=== PATIENT | female | born 1965 | race American Indian/Alaskan Native ===

== ENCOUNTER 2018-03-16 04:47 | Observation (INO) | payer MEDICAID ==
--- NOTE | 2018-03-16 06:41 | C.PDOC ---
Time Seen by Provider: 03/16/18 05:01 Chief Complaint (Nursing): Chest Pain History Per: Patient Onset/Duration Of Symptoms: Hrs (this morning) Current Symptoms Are (Timing): Still Present Severity: Moderate Quality: "Pain" Modifying Factors: Other Indicated Below Alleviating Factors: None Nitro Therapy Administered: 1, Per EMS, Partial Relief Additional History Per: Prior Records Past Medical History Reviewed: Historical Data, Nursing Documentation, Vital Signs Vital Signs: Last Vital Signs Temp 99.1 F 03/16/18 05:13 Pulse 74 03/16/18 06:39 Resp 16 03/16/18 06:39 BP 137/65 03/16/18 06:39 Pulse Ox 100 03/16/18 06:54 - Medical History PMH: Arthritis, Diabetes, HIV, HTN, Hypercholesterolemia Surgical History: Hernia Repair Family History: States: Unknown Family Hx - Social History Hx Tobacco Use: Yes Hx Alcohol Use: Yes Hx Substance Use: No - Immunization History Hx Tetanus Toxoid Vaccination: No Hx Influenza Vaccination: Yes Hx Pneumococcal Vaccination: No Review Of Systems Except As Marked, All Systems Reviewed And Found Negative. Constitutional: Negative for: Fever, Weakness Cardiovascular: Positive for: Chest Pain, Edema Respiratory: Positive for: Shortness of Breath. Negative for: Hemoptysis Gastrointestinal: Positive for: Vomiting (yesterday). Negative for: Abdominal Pain Musculoskeletal: Positive for: Back Pain. Negative for: Neck Pain Skin: Negative for: Rash Neurological: Negative for: Weakness, Numbness Physical Exam - Physical Exam Appears: No Acute Distress, Chronically Ill Skin: Normal Color, Warm, Dry Head: Atraumatic, Normacephalic Eye(s): bilateral: PERRL, EOMI Neck: Normal ROM, Supple Cardiovascular: Rhythm Regular Respiratory: Normal Breath Sounds, No Accessory Muscle Use Gastrointestinal/Abdominal: Soft, No Tenderness Extremity: Normal ROM, Pedal Edema (b/l), No Calf Tenderness Neurological/Psych: Oriented x3, Normal Motor, Normal Sensation ED Course And Treatment - Laboratory Results Result Diagrams: 03/16/18 06:41 ECG: Interpreted By Me, Viewed By Me ECG Rhythm: Sinus Rhythm, Nonspecific Changes ECG Interpretation: Abnormal Interpretation Of ECG: Prolonged QTc Rate From EC O2 Sat by Pulse Oximetry: 100 Pulse Ox Interpretation: Normal - Radiology CXR: Interpreted by Me, Viewed By Me CXR Interpretation: Yes: Cardiomegaly Progress Note: RNs were not able to obtain a peripheral IV line. Pt is refusing EJ or lower extremity IV attempts. Progress - Interventions Interventions:: Observation, Oxygen - Medications Administered Oral: Aspirin (given by EMS) Disposition - Disposition Disposition Time: 06:55 Condition: FAIR - Clinical Impression Clinical Impression: Chest pain Physician Patient Turnover Patient Signed Over To: Linda Riley Handoff Comments: to f/up labs and reassess/dispo pt.
[2018-03-16 06:44] LABS: BASO # 0.1 K/uL (0.0-0.2); BASO % 0.9 % (0.0-2.0); EOS # 0.2 K/uL (0.0-0.7); EOS % 3.3 % (0.0-4.0); HEMOGLOBIN 12.4 g/dL (11.0-16.0); LYMPH # 3.1 K/uL (1.0-4.3); LYMPH % 44.8 % (20.0-40.0); MEAN CELL VOLUME 86.7 fL (81.0-99.0); MEAN CORPUSCULAR HGB CONC 33.5 g/dL (33.0-37.0); MEAN PLATELET VOLUME 8.8 fL (7.2-11.7); MONO # 0.6 K/uL (0.0-0.8); MONO % 9.2 % (0.0-10.0); NEUT # 2.8 K/uL (1.8-7.0); NEUT % 41.8 % (50.0-75.0); NRBC % 0.1 % (0.0-2.0); RBC 4.29 Mil/uL (3.80-5.20); RED CELL DISTRIBUTION WIDTH 17.6 % (11.5-14.5); WHITE BLOOD COUNT 6.8 K/uL (4.8-10.8)
[2018-03-16 06:58] LABS: ALB/GLOB RATIO 0.8 (1.0-2.1); ALBUMIN 3.5 g/dL (3.5-5.0); ALT/SGPT 20 U/L (9-52); AST/SGOT 26 U/L (14-36); BLOOD UREA NITROGEN 11 mg/dL (7-17); CALCIUM 8.9 mg/dl (8.6-10.4); GFR AFRICAN-AMERICAN > 60; GFR NON-AFRICAN AMERICAN 52; LIPASE 48 U/L (23-300)
[2018-03-16 07:09] LABS: B-TYPE NATRIURETIC PEPTIDE 543 pg/mL (0-900)
[2018-03-16 07:21] LABS: INR 1.1; PROTHROMBIN TIME 12.4 SECONDS (9.7-12.2)
[2018-03-16] MEDS ORDERED: Nitroglycerin 2% Ointment Foilpak UD TOP STA (07:31)
[2018-03-16] MEDS ORDERED: Acetaminophen-Codeine 300/30 mg Tab PO STA (07:31)
[2018-03-16] MEDS ORDERED: Nitroglycerin 2% Ointment Foilpak UD TOP ONE (07:48)
[2018-03-16] MEDS ORDERED: Acetaminophen-Codeine 300/30 mg Tab PO ONE (07:49)
--- NOTE | 2018-03-16 08:11 | RAD ---
PROCEDURE: CHEST RADIOGRAPH, 1 VIEW HISTORY: chest pain COMPARISON: None available. FINDINGS: LUNGS: Mild pulmonary vascular congestion is noted. PLEURA: Blunting of the right costophrenic angle is suspected. CARDIOVASCULAR: The cardiac silhouette is mildly enlarged. OSSEOUS STRUCTURES: No significant abnormalities. VISUALIZED UPPER ABDOMEN: Normal. OTHER FINDINGS: None. IMPRESSION: Possible cardiomegaly and mild pulmonary congestion.
--- NOTE | 2018-03-16 08:45 | CP.PCM.HP ---
<Marisol Ashley - Last Filed: 03/16/18 09:11> History of Present Illness - History of Present Illness History of Present Illness: HPI: 52 year old female with past medical history of HTN, NIDDM, HLD, HIV, ARA, OA presented to hospital for chest pain and dyspnea. Patient states that she was unable to sleep around 2 am last night and was walking around her neighborhood when suddenly she developed 10/10 sharp, substernal pain. Pain was sharp and radiated straight back. Patient denies having similar pain in past. Pain was associated with mild dyspnea. Patient was given aspirin 325 mg in ambulance. She was then given nitro, tylenol 3 and ultram in ED. Patient reports improvement of CP after receiving the tylenol 3 and ultram. Patient denies having any recent coughing, fever, chills, history of blood clots, recent travels. Patient does complain of LE edema for past few weeks. Patient denies having any cardiac work up in past. Pmhx: stated above social: smokes 1-2 cigs for about 35 years, denies drug use. drinks ETOh on weekends PMD: Dr. Meme Ring: unknown. Patient's pharmacy: [facility] [phone] Present on Admission - Present on Admission Any Indicators Present on Admission: No Review of Systems - Constitutional Constitutional: absent: Chills, Fever - EENT Eyes: absent: Blurred Vision, Change in Vision Nose/Mouth/Throat: absent: Nasal Congestion, Nasal Discharge, Sore Throat - Cardiovascular Cardiovascular: Chest Pain, Chest Pain with Activity, Dyspnea on Exertion, Pedal Edema. absent: Chest Pain at Rest, Irregular Heart Rhythm, Lightheadedness - Respiratory Respiratory: Dyspnea on Exertion. absent: Cough, Dyspnea, Wheezing, Chest Congestion, Pain with Coughing - Gastrointestinal Gastrointestinal: absent: Abdominal Pain, Constipation, Diarrhea, Nausea, Vomiting - Genitourinary Genitourinary: absent: Dysuria, Urinary Frequency - Musculoskeletal Musculoskeletal: absent: Back Pain, Numbness, Tingling - Integumentary Integumentary: absent: Acne, Lesions, Rash - Neurological Neurological: absent: Dizziness, Numbness, Syncope, Weakness - Psychiatric Psychiatric: absent: Anxiety, Depression Past Patient History - Infectious Disease Hx of Infectious Diseases: None - Past Social History Smoking Status: Light Smoker < 10 Cigarettes Daily Chewing Tobacco Use: No Cigar Use: No Alcohol: Social Drugs: Denies - CARDIAC Hx Hypercholesterolemia: Yes Hx Hypertension: Yes - PULMONARY Hx Respiratory Disorders: No - NEUROLOGICAL Hx Neurological Disorder: No - HEENT Hx HEENT Problems: No - RENAL Hx Chronic Kidney Disease: No - ENDOCRINE/METABOLIC Hx Endocrine Disorders: Yes Hx Diabetes Mellitus Type 2: Yes - HEMATOLOGICAL/ONCOLOGICAL Hx Human Immunodeficiency Virus (HIV): Yes - INTEGUMENTARY Hx Dermatological Problems: No - MUSCULOSKELETAL/RHEUMATOLOGICAL Hx Arthritis: Yes - GASTROINTESTINAL Hx Gastrointestinal Disorders: No - GENITOURINARY/GYNECOLOGICAL Hx Genitourinary Disorders: No - PSYCHIATRIC Hx Substance Use: No - SURGICAL HISTORY Hx Surgeries: Yes Hx Section: Yes (X2) Hx Herniorrhaphy: Yes - ANESTHESIA Hx Anesthesia: Yes Meds Allergies/Adverse Reactions: Allergies Allergy/AdvReac Type Severity Reaction Status Date / Time grape Allergy ITCHING Verified 03/16/18 05:01 Penicillins Allergy SWELLING Verified 03/16/18 05:01 Physical Exam - Constitutional Appears: Non-toxic, No Acute Distress - Head Exam Head Exam: ATRAUMATIC, NORMOCEPHALIC - ENT Exam ENT Exam: Mucous Membranes Moist - Respiratory Exam Respiratory Exam: Clear to Auscultation Bilateral, NORMAL BREATHING PATTERN. absent: Accessory Muscle Use, Rales, Rhonchi, Wheezes, Respiratory Distress - Cardiovascular Exam Cardiovascular Exam: REGULAR RHYTHM, +S1, +S2. absent: Diastolic murmur, Gallop , Rubs, Systolic Murmur - GI/Abdominal Exam GI & Abdominal Exam: Normal Bowel Sounds, Soft. absent: Distended, Firm, Guarding, Rigid, Tenderness - Extremities Exam Extremities exam: Positive for: pedal edema (1+ B/L ). Negative for: tenderness - Neurological Exam Neurological exam: Alert, Oriented x3 - Psychiatric Exam Psychiatric exam: Normal Affect, Normal Mood - Skin Skin Exam: Dry, Intact, Normal Color, Warm Results - Vital Signs Recent Vital Signs: Last Vital Signs Temp 97.8 F 03/16/18 07:56 Pulse 66 03/16/18 07:56 Resp 18 03/16/18 07:56 BP 152/72 H 03/16/18 07:56 Pulse Ox 99 03/16/18 07:56 - Labs Result Diagrams: 03/16/18 06:41 03/16/18 06:41 Labs: Laboratory Results - last 24 hr 03/16/18 03/16/18 03/16/18 06:41 06:41 06:41 WBC 6.8 RBC 4.29 Hgb 12.4 Hct 37.2 MCV 86.7 MCH 29.0 MCHC 33.5 RDW 17.6 H Plt Count 337 MPV 8.8 Neut % (Auto) 41.8 L Lymph % (Auto) 44.8 H Beauregard % (Auto) 9.2 Eos % (Auto) 3.3 Baso % (Auto) 0.9 Neut # (Auto) 2.8 Lymph # (Auto) 3.1 Beauregard # (Auto) 0.6 Eos # (Auto) 0.2 Baso # (Auto) 0.1 PT 12.4 H INR 1.1 APTT 31 D-Dimer, Quantitative 236 Sodium 144 Potassium 4.1 Chloride 108 H Carbon Dioxide 23 Anion Gap 17 BUN 11 Creatinine 1.1 Est GFR ( Amer) > 60 Est GFR (Non-Af Amer) 52 Random Glucose 91 Calcium 8.9 Magnesium 2.1 Total Bilirubin 0.4 AST 26 ALT 20 Alkaline Phosphatase 71 Lactate Dehydrogenase 508 Troponin I < 0.0120 NT-Pro-B Natriuret Pep 543 Total Protein 7.9 Albumin 3.5 Globulin 4.5 H Albumin/Globulin Ratio 0.8 L Lipase 48 Alcohol, Quantitative 33 H Assessment & Plan - Assessment and Plan (Free Text) Assessment: 52 year old female with past medical history of HTN, NIDDM, HLD, ARA, OA is admitted for chest pain rule out ACS. Initial troponins are negative. EKG showed prolonged QTc interval of 521. CXR on admission showed possible cardiomegaly and mild pulmonary congestion. ProBNP was normal. Chest pain R/O ACS - Will check serial troponins and EKG - Will check UDS - Will check echo - Will check CT of chest dissection protocol - Aspirin 81 mg po qd - Nitro SL q5 prn for angina - Toradol prn for possible costochondiritis pain - Will consult cardiology, Dr. Nunes COPD - will check chest CT - Solumedrol 40 IVP qd - Will consult pulm, Dr. Kidd HTN - Will need to check home medications - Will start pt on losartan - Will continue to monitor HLD - will check lipid panel and hgbA1c and TSH - Will start pt on statin therapy crestor 5 mg po HS. Will check ASCVD score to titrate statin DM - Accuchecks ACHS - ISS - hypoglycemic protocol - heart healthy diet HIV - Will need to check home medications in order to restart HIV meds - Will check CD4 count and viral load ARA - CPAP at night time Prophylaxis - SCDs - Lovenox - protonix Case discussed with attending, Dr. Gurrola - Date & Time Date: 03/16/18 Time: 08:48 <Lara Gurrola V - Last Filed: 03/16/18 09:55> Results - Vital Signs Recent Vital Signs: Last Vital Signs Temp 97.8 F 03/16/18 07:56 Pulse 66 03/16/18 07:56 Resp 18 03/16/18 07:56 BP 152/72 H 03/16/18 07:56 Pulse Ox 100 03/16/18 08:46 - Labs Result Diagrams: 03/16/18 06:41 03/16/18 06:41 Labs: Laboratory Results - last 24 hr 03/16/18 03/16/18 03/16/18 06:41 06:41 06:41 WBC 6.8 RBC 4.29 Hgb 12.4 Hct 37.2 MCV 86.7 MCH 29.0 MCHC 33.5 RDW 17.6 H Plt Count 337 MPV 8.8 Neut % (Auto) 41.8 L Lymph % (Auto) 44.8 H Beauregard % (Auto) 9.2 Eos % (Auto) 3.3 Baso % (Auto) 0.9 Neut # (Auto) 2.8 Lymph # (Auto) 3.1 Beauregard # (Auto) 0.6 Eos # (Auto) 0.2 Baso # (Auto) 0.1 PT 12.4 H INR 1.1 APTT 31 D-Dimer, Quantitative 236 Sodium 144 Potassium 4.1 Chloride 108 H Carbon Dioxide 23 Anion Gap 17 BUN 11 Creatinine 1.1 Est GFR ( Amer) > 60 Est GFR (Non-Af Amer) 52 Random Glucose 91 Calcium 8.9 Magnesium 2.1 Total Bilirubin 0.4 AST 26 ALT 20 Alkaline Phosphatase 71 Lactate Dehydrogenase 508 Troponin I < 0.0120 NT-Pro-B Natriuret Pep 543 Total Protein 7.9 Albumin 3.5 Globulin 4.5 H Albumin/Globulin Ratio 0.8 L Lipase 48 Alcohol, Quantitative 33 H Attending/Attestation - Attestation I have personally seen and examined this patient.: Yes I have fully participated in the care of the patient.: Yes I have reviewed all pertinent clinical information: Yes Notes (Text): Patient seen, examined, and case discussed with day-time resident. Patient seen this morning. Patient with known history of ARA (on CPAP, when she remembers, does not know the settings), COPD/Asthma (exposed to second hand smoke and she herself smokes), hypertension, diabetes, lipid disorder, HIV ( undetectable about 1 month ago per patient), comes in following episodes of dyspnea on exertion walking 2 blocks early this morning with associated chest tightness. Admitting orders discussed with the resident. Assessment/Plan 1) Chest pain Abnormal EKG Assessment/Plan * Monitor on telemetry * Cardiology (Dr. Nunes) on board-->help appreciated * Will check serial troponins and EKG,Q6 Hours X3 * Will check UDS * Received Aspirin 81mg PO X4 * Echocardiogram ordered * Chest CT w/o contrast * c/w Aspirin 81 mg po qdaily * Nitro SL q5 prn for angina (3 doses) * Toradol 30mg IV Q6H prn pain for possible costochondiritis pain * QTc>500-->monitor K+ and Mg+ no medications to prolong QT * Check cardiac risk factors: hgba1c, TSH, and Lipid panel * Probnp normal 2) COPD exacerbation severe-persistent COPD * Monitor on telemetry * She reports she is using nebulizers everyday * Pulmonary (Dr. Kidd) on board--> help appreciated * Duonebs Q6h PRN shortness of breathe * Solumedrol 40mg IV Q8H * Current smoker and exposed to second smoker 3) Hypertension Assessment/Plan * Monitor on telemetry * Cozaar 25mg PO daily 4) Lipid Disorder Assessment/Plan * Lipid Panel in AM * Crestor 5mg POqHS * Will check ASCVD score to titrate statin 5) Diabetes Assessment/Plan * Accuchecks ACHS * ISS * hypoglycemic protocol * heart healthy diet * check a1c, Lipid panel 6) HIV Assessment/Plan * Patient reports undetectable; last checked per patient one month ago. * Will check CD4 count and viral load 7) ARA * Pulmonary (Dr. Kidd) controlled atmospheric furnace brazer-->help appreciated * will schedule CPAP at night time 8) Prophylaxis * SCDs b/l * Lovenox 40mg subqdaily * Protonix 40mg Po daily * Will need to f/u pharmacy to confirm medications including nebulizers and HIV medications * Patient refusing IV lines-->she was instructed by myself she needs an IV line given she will need IV steroids.
[2018-03-16] MEDS ORDERED: Glucagon Recombinant 1 mg Inj IM PRN (08:56)
[2018-03-16] MEDS ORDERED: Dextrose 50% SYRINGE Inj (50 ml) IV PRN (08:56)
[2018-03-16] MEDS ORDERED: Albuterol-Ipratrop 3 mg / 0.5 (3 ml) UD INH PRN (09:45)
[2018-03-16] MEDS ORDERED: MethylPREDNISolone 40 mg Vial IVP SCH (10:00)
[2018-03-16] MEDS: Enoxaparin 40 mg Syringe SC SCH (10:28)
[2018-03-16] MEDS: Pantoprazole 40 mg EC Tab PO SCH (10:28)
[2018-03-16] MEDS: (Novolin R) Insulin Human Regular 100 units/ml vial SC SCH ×3 (13:31→21:36)
[2018-03-16 13:38] LABS: HCG,QUALITATIVE URINE NEGATIVE (NEGATIVE)
[2018-03-16 13:42] LABS: SQUAMOUS EPITHIAL < 1 /hpf (0-5); URINE BILIRUBIN NEGATIVE (NEGATIVE); URINE BLOOD NEGATIVE (NEGATIVE); URINE CLARITY Clear (Clear); URINE COLOR Yellow (YELLOW); URINE GLUCOSE (UA) NORMAL (Normal); URINE LEUKOCYTE ESTERASE NEG Leu/uL (Negative); URINE PROTEIN 1+ mg/dL (NEGATIVE); URINE UROBILINOGEN NORMAL mg/dL (0.2-1.0)
[2018-03-16 13:55] LABS: BENZODIAZEPINES, UR NEGATIVE (NEGATIVE); PHENCYCLIDINE, UR NEGATIVE (NEGATIVE)
[2018-03-16] MEDS: MethylPREDNISolone 40 mg Vial IVP SCH (13:55)
[2018-03-16 13:56] LABS: BARBITURATES, UR POSITIVE (NEGATIVE); OPIATES, UR POSITIVE (NEGATIVE)
[2018-03-16] MEDS: Ciprofloxacin 400mg/200ml D5W 400 MG/200 ML BAG IVPB SCH (13:56)
[2018-03-16 14:00] LABS: CK-MB 0.86 ng/mL (0.0-3.38)
[2018-03-16] MEDS ORDERED: Azithromycin 500 MG in Sodium Chloride 0.9% 250 ML IVPB SCH (14:00)
[2018-03-16 17:53] VITALS: RESP 20
--- NOTE | 2018-03-16 22:21 | CP.PCM.CON ---
History of Present Illness - History of Present Illness History of Present Illness: Reason For Cosnultation: Chest pain HPI: 52 year old female with past medical history of HTN, NIDDM, HLD, HIV, ARA, OA presented to hospital for chest pain and dyspnea. Patient states that she was unable to sleep around 2 am last night and was walking around her neighborhood when suddenly she developed 10/10 sharp, substernal pain. Pain was sharp and radiated straight back. Patient denies having similar pain in past. Pain was associated with mild dyspnea. Patient was given aspirin 325 mg in ambulance. She was then given nitro, tylenol 3 and ultram in ED. Patient reports improvement of CP after receiving the tylenol 3 and ultram. Patient denies having any recent coughing, fever, chills, history of blood clots, recent travels. Patient does complain of LE edema for past few weeks. Patient denies having any cardiac work up in past. Pmhx: stated above social: smokes 1-2 cigs for about 35 years, denies drug use. drinks ETOh on weekends PMD: Dr. Meme Ring: unknown. Patient's pharmacy: [facility] [phone] Review of Systems - Constitutional Constitutional: absent: Chills, Fever - EENT Eyes: absent: Blurred Vision, Change in Vision Nose/Mouth/Throat: absent: Nasal Congestion, Nasal Discharge, Sore Throat - Cardiovascular Cardiovascular: Chest Pain, Chest Pain with Activity, Dyspnea on Exertion, Pedal Edema. absent: Chest Pain at Rest, Irregular Heart Rhythm, Lightheadedness - Respiratory Respiratory: Dyspnea on Exertion. absent: Cough, Dyspnea, Wheezing, Chest Congestion, Pain with Coughing - Gastrointestinal Gastrointestinal: absent: Abdominal Pain, Constipation, Diarrhea, Nausea, Vomiting - Genitourinary Genitourinary: absent: Dysuria, Urinary Frequency - Musculoskeletal Musculoskeletal: absent: Back Pain, Numbness, Tingling - Integumentary Integumentary: absent: Acne, Lesions, Rash - Neurological Neurological: absent: Dizziness, Numbness, Syncope, Weakness - Psychiatric Psychiatric: absent: Anxiety, Depression Physical Exam - Constitutional Appears: Non-toxic, No Acute Distress - Head Exam Head Exam: ATRAUMATIC, NORMOCEPHALIC - ENT Exam ENT Exam: Mucous Membranes Moist - Respiratory Exam Respiratory Exam: Clear to Auscultation Bilateral, NORMAL BREATHING PATTERN. absent: Accessory Muscle Use, Rales, Rhonchi, Wheezes, Respiratory Distress - Cardiovascular Exam Cardiovascular Exam: REGULAR RHYTHM, +S1, +S2. absent: Diastolic murmur, Gallop , Rubs, Systolic Murmur - GI/Abdominal Exam GI & Abdominal Exam: Normal Bowel Sounds, Soft. absent: Distended, Firm, Guarding, Rigid, Tenderness - Extremities Exam Extremities exam: Positive for: pedal edema (1+ B/L ). Negative for: tenderness - Neurological Exam Neurological exam: Alert, Oriented x3 - Psychiatric Exam Psychiatric exam: Normal Affect, Normal Mood - Skin Skin Exam: Dry, Intact, Normal Color, Warm Past Patient History - Infectious Disease Hx of Infectious Diseases: None - Past Social History Smoking Status: Light Smoker < 10 Cigarettes Daily Chewing Tobacco Use: No Cigar Use: No Alcohol: Social Drugs: Denies - CARDIAC Hx Hypercholesterolemia: Yes Hx Hypertension: Yes - PULMONARY Hx Respiratory Disorders: No - NEUROLOGICAL Hx Neurological Disorder: No - HEENT Hx HEENT Problems: No - RENAL Hx Chronic Kidney Disease: No - ENDOCRINE/METABOLIC Hx Endocrine Disorders: Yes Hx Diabetes Mellitus Type 2: Yes - HEMATOLOGICAL/ONCOLOGICAL Hx Human Immunodeficiency Virus (HIV): Yes - INTEGUMENTARY Hx Dermatological Problems: No - MUSCULOSKELETAL/RHEUMATOLOGICAL Hx Arthritis: Yes - GASTROINTESTINAL Hx Gastrointestinal Disorders: No - GENITOURINARY/GYNECOLOGICAL Hx Genitourinary Disorders: No - PSYCHIATRIC Hx Substance Use: No - SURGICAL HISTORY Hx Surgeries: Yes Hx Section: Yes (X2) Hx Herniorrhaphy: Yes - ANESTHESIA Hx Anesthesia: Yes Meds Allergies/Adverse Reactions: Allergies Allergy/AdvReac Type Severity Reaction Status Date / Time grape Allergy ITCHING Verified 03/16/18 05:01 Penicillins Allergy SWELLING Verified 03/16/18 05:01 - Medications Medications: Current Medications Albuterol/Ipratropium (Duoneb 3 Mg/0.5 Mg (3 Ml) Ud) 3 ml INH RQ6 PRN PRN Reason: Shortness of Breath Aspirin (Ecotrin) 81 mg PO DAILY [facility] Last Admin: 03/16/18 10:27 Dose: 81 mg Dextrose (Dextrose 50% Inj) 0 ml IV STAT PRN; Protocol PRN Reason: Hypoglycemia Protocol Dextrose (Glutose 15) 0 gm PO ONCE PRN; Protocol PRN Reason: Hypoglycemia Protocol Enoxaparin Sodium (Lovenox) 40 mg SC DAILY [facility] Last Admin: 03/16/18 10:28 Dose: 40 mg Glucagon (Glucagen Diagnostic Kit) 0 mg IM STAT PRN; Protocol PRN Reason: Hypoglycemia Protocol Dextrose (Dextrose 5% In Water 1000 Ml) 1,000 mls @ 0 mls/hr IV .Q0M PRN; Protocol; Per Protocol PRN Reason: Hypoglycemia Protocol Ciprofloxacin (Cipro 400mg/200ml Dsw) 400 mg in 200 mls @ 133 mls/hr IVPB Q12H [facility] PRN Reason: Protocol Last Admin: 03/16/18 13:56 Dose: 133 mls/hr Insulin Human Regular (Novolin R) 0 unit SC ACHS [facility] PRN Reason: Protocol Last Admin: 03/16/18 21:36 Dose: Not Given Ketorolac Tromethamine (Toradol) 15 mg IM Q6 PRN PRN Reason: Pain, moderate (4-7) Last Admin: 03/16/18 21:30 Dose: 15 mg Ketorolac Tromethamine (Toradol) 30 mg IVP Q6 PRN PRN Reason: Pain, severe (8-10) Stop: 03/17/18 00:01 Losartan Potassium (Cozaar) 25 mg PO DAILY [facility] Last Admin: 03/16/18 10:28 Dose: 25 mg Methylprednisolone (Solu-Medrol) 40 mg IVP Q8 [facility] Last Admin: 03/16/18 13:55 Dose: 40 mg Nitroglycerin (Nitrostat Sl Tab) 0.4 mg SL Q5M PRN PRN Reason: Pain, Mild (1-3) Pantoprazole Sodium (Protonix Ec Tab) 40 mg PO DAILY [facility] Last Admin: 03/16/18 10:28 Dose: 40 mg Rosuvastatin Calcium (Crestor) 5 mg PO HS [facility] Last Admin: 03/16/18 21:31 Dose: 5 mg Results - Vital Signs Recent Vital Signs: Last Vital Signs Temp 98 F 03/16/18 15:00 Pulse 59 L 03/16/18 15:00 Resp 20 03/16/18 15:00 BP 165/90 H 03/16/18 15:00 Pulse Ox 98 03/16/18 15:00 - Labs Result Diagrams: 03/16/18 06:41 03/16/18 06:41 Labs: Laboratory Results - last 24 hr 06/1003/16/18 03/16/18 06:41 06:41 06:41 WBC 6.8 RBC 4.29 Hgb 12.4 Hct 37.2 MCV 86.7 MCH 29.0 MCHC 33.5 RDW 17.6 H Plt Count 337 MPV 8.8 Neut % (Auto) 41.8 L Lymph % (Auto) 44.8 H Bill[place] % (Auto) 9.2 Eos % (Auto) 3.3 Baso % (Auto) 0.9 Neut # (Auto) 2.8 Lymph # (Auto) 3.1 [place] # (Auto) 0.6 Eos # (Auto) 0.2 Baso # (Auto) 0.1 PT 12.4 H INR 1.1 APTT 31 D-Dimer, Quantitative 236 Sodium 144 Potassium 4.1 Chloride 108 H Carbon Dioxide 23 Anion Gap 17 BUN 11 Creatinine 1.1 Est GFR ( Amer) > 60 Est GFR (Non-Af Amer) 52 POC Glucose (mg/dL) Random Glucose 91 Calcium 8.9 Magnesium 2.1 Total Bilirubin 0.4 AST 26 ALT 20 Alkaline Phosphatase 71 Lactate Dehydrogenase 508 Total Creatine Kinase CK-MB (Mass) Troponin I < 0.0120 NT-Pro-B Natriuret Pep 543 Total Protein 7.9 Albumin 3.5 Globulin 4.5 H Albumin/Globulin Ratio 0.8 L Triglycerides Cholesterol LDL Cholesterol Direct HDL Cholesterol Lipase 48 Free T4 TSH 3rd Generation Urine Color Urine Clarity Urine pH Ur Specific [place] Urine Protein Urine Glucose (UA) Urine Ketones Urine Blood Urine Nitrate Urine Bilirubin Urine Urobilinogen Ur Leukocyte Esterase Urine WBC (Auto) Urine RBC (Auto) Ur Squamous Epith Cells Urine HCG, Qual Urine Opiates Screen Urine Methadone Screen Ur Barbiturates Screen Ur Phencyclidine Scrn Ur Amphetamines Screen U Benzodiazepines Scrn U Oth Cocaine Metabols U Cannabinoids Screen Alcohol, Quantitative 33 H 03/16/18 03/16/18 03/16/18 12:13 12:57 12:57 WBC RBC Hgb Hct MCV MCH MCHC RDW Plt Count MPV Neut % (Auto) Lymph % (Auto) [place] % (Auto) Eos % (Auto) Baso % (Auto) Neut # (Auto) Lymph # (Auto) [place] # (Auto) Eos # (Auto) Baso # (Auto) PT INR APTT D-Dimer, Quantitative Sodium Potassium Chloride Carbon Dioxide Anion Gap BUN Creatinine Est GFR ( Amer) Est GFR (Non-Af Amer) POC Glucose (mg/dL) 97 Random Glucose Calcium Magnesium 2.2 Total Bilirubin AST ALT Alkaline Phosphatase Lactate Dehydrogenase Total Creatine Kinase CK-MB (Mass) Troponin I NT-Pro-B Natriuret Pep Total Protein Albumin Globulin Albumin/Globulin Ratio Triglycerides 106 Cholesterol 187 LDL Cholesterol Direct 122 HDL Cholesterol 33 Lipase Free T4 TSH 3rd Generation 0.63 Urine Color Yellow Urine Clarity Clear Urine pH 5.0 Ur Specific [place] 1.028 Urine Protein 1+ H Urine Glucose (UA) Normal Urine Ketones Negative Urine Blood Negative Urine Nitrate Negative Urine Bilirubin Negative Urine Urobilinogen Normal Ur Leukocyte Esterase Neg Urine WBC (Auto) 1 Urine RBC (Auto) 1 Ur Squamous Epith Cells < 1 Urine HCG, Qual Negative Urine Opiates Screen Urine Methadone Screen Ur Barbiturates Screen Ur Phencyclidine Scrn Ur Amphetamines Screen U Benzodiazepines Scrn U Oth Cocaine Metabols U Cannabinoids Screen Alcohol, Quantitative 03/16/18 03/16/18 03/16/18 12:57 12:57 13:21 WBC RBC Hgb Hct MCV MCH MCHC RDW Plt Count MPV Neut % (Auto) Lymph % (Auto) [place] % (Auto) Eos % (Auto) Baso % (Auto) Neut # (Auto) Lymph # (Auto) [place] # (Auto) Eos # (Auto) Baso # (Auto) PT INR APTT D-Dimer, Quantitative Sodium Potassium Chloride Carbon Dioxide Anion Gap BUN Creatinine Est GFR ( Amer) Est GFR (Non-Af Amer) POC Glucose (mg/dL) Random Glucose Calcium Magnesium Total Bilirubin AST ALT Alkaline Phosphatase Lactate Dehydrogenase Total Creatine Kinase 145 H CK-MB (Mass) 0.86 Troponin I < 0.0120 NT-Pro-B Natriuret Pep Total Protein Albumin Globulin Albumin/Globulin Ratio Triglycerides Cholesterol LDL Cholesterol Direct HDL Cholesterol Lipase Free T4 1.47 TSH 3rd Generation Urine Color Urine Clarity Urine pH Ur Specific [place] Urine Protein Urine Glucose (UA) Urine Ketones Urine Blood Urine Nitrate Urine Bilirubin Urine Urobilinogen Ur Leukocyte Esterase Urine WBC (Auto) Urine RBC (Auto) Ur Squamous Epith Cells Urine HCG, Qual Urine Opiates Screen Positive H Urine Methadone Screen Negative Ur Barbiturates Screen Positive H Ur Phencyclidine Scrn Negative Ur Amphetamines Screen Negative U Benzodiazepines Scrn Negative U Oth Cocaine Metabols Positive H U Cannabinoids Screen Negative Alcohol, Quantitative 03/16/18 03/16/18 17:19 21:34 WBC RBC Hgb Hct MCV MCH MCHC RDW Plt Count MPV Neut % (Auto) Lymph % (Auto) [place] % (Auto) Eos % (Auto) Baso % (Auto) Neut # (Auto) Lymph # (Auto) [place] # (Auto) Eos # (Auto) Baso # (Auto) PT INR APTT D-Dimer, Quantitative Sodium Potassium Chloride Carbon Dioxide Anion Gap BUN Creatinine Est GFR ( Amer) Est GFR (Non-Af Amer) POC Glucose (mg/dL) 139 H 132 H Random Glucose Calcium Magnesium Total Bilirubin AST ALT Alkaline Phosphatase Lactate Dehydrogenase Total Creatine Kinase CK-MB (Mass) Troponin I NT-Pro-B Natriuret Pep Total Protein Albumin Globulin Albumin/Globulin Ratio Triglycerides Cholesterol LDL Cholesterol Direct HDL Cholesterol Lipase Free T4 TSH 3rd Generation Urine Color Urine Clarity Urine pH Ur Specific [place] Urine Protein Urine Glucose (UA) Urine Ketones Urine Blood Urine Nitrate Urine Bilirubin Urine Urobilinogen Ur Leukocyte Esterase Urine WBC (Auto) Urine RBC (Auto) Ur Squamous Epith Cells Urine HCG, Qual Urine Opiates Screen Urine Methadone Screen Ur Barbiturates Screen Ur Phencyclidine Scrn Ur Amphetamines Screen U Benzodiazepines Scrn U Oth Cocaine Metabols U Cannabinoids Screen Alcohol, Quantitative Assessment & Plan - Assessment and Plan (Free Text) Assessment: 1) Chest pain Abnormal EKG Assessment/Plan * Monitor on telemetry * Will check serial troponins and EKG,Q6 Hours X3 * Will check UDS * Received Aspirin 81mg PO X4 * Echocardiogram ordered * Chest CT w/o contrast * c/w Aspirin 81 mg po qdaily * Nitro SL q5 prn for angina (3 doses) * Toradol 30mg IV Q6H prn pain for possible costochondiritis pain * QTc>500-->monitor K+ and Mg+ no medications to prolong QT * Check cardiac risk factors: hgba1c, TSH, and Lipid panel * Probnp normal * * Scheduled for stress test in am 2) COPD exacerbation severe-persistent COPD * Monitor on telemetry * She reports she is using nebulizers everyday * Pulmonary (Dr. Kidd) on board--> help appreciated * Duonebs Q6h PRN shortness of breathe * Solumedrol 40mg IV Q8H * Current smoker and exposed to second smoker 3) Hypertension Assessment/Plan * Monitor on telemetry * Cozaar 25mg PO daily 4) Lipid Disorder Assessment/Plan * Lipid Panel in AM * Crestor 5mg POqHS * Will check ASCVD score to titrate statin 5) Diabetes Assessment/Plan * Accuchecks ACHS * ISS * hypoglycemic protocol * heart healthy diet * check a1c, Lipid panel 6) HIV Assessment/Plan * Patient reports undetectable; last checked per patient one month ago. * Will check CD4 count and viral load 7) ARA * Pulmonary (Dr. Kidd) medicaid collection specialist-->help appreciated * will schedule CPAP at night time 8) Prophylaxis * SCDs b/l * Lovenox 40mg subqdaily * Protonix 40mg Po daily * Will need to f/u pharmacy to confirm medications including nebulizers and HIV medications * Patient refusing IV lines-->she was instructed by myself she needs an IV line given she will need IV steroids.
[2018-03-17] MEDS: Ciprofloxacin 400mg/200ml D5W 400 MG/200 ML BAG IVPB SCH ×2 (02:00→13:11)
[2018-03-17 02:33] VITALS: O2SAT 100
[2018-03-17] MEDS: (Novolin R) Insulin Human Regular 100 units/ml vial SC SCH ×2 (06:00→12:16)
--- NOTE | 2018-03-17 07:39 | CP.PCM.PN ---
Objective - Vital Signs/Intake and Output Vital Signs (last 24 hours): Temp Pulse Resp BP Pulse Ox 97.9 F 67 20 108/71 100 03/16/18 23:40 03/17/18 06:42 03/16/18 23:40 03/16/18 23:40 03/16/18 23:40 - Medications Medications: Current Medications Albuterol/Ipratropium (Duoneb 3 Mg/0.5 Mg (3 Ml) Ud) 3 ml INH RQ6 PRN PRN Reason: Shortness of Breath Last Admin: 03/17/18 06:42 Dose: 3 ml Aspirin (Ecotrin) 81 mg PO DAILY [facility] Last Admin: 03/16/18 10:27 Dose: 81 mg Dextrose (Dextrose 50% Inj) 0 ml IV STAT PRN; Protocol PRN Reason: Hypoglycemia Protocol Dextrose (Glutose 15) 0 gm PO ONCE PRN; Protocol PRN Reason: Hypoglycemia Protocol Enoxaparin Sodium (Lovenox) 40 mg SC DAILY [facility] Last Admin: 03/16/18 10:28 Dose: 40 mg Glucagon (Glucagen Diagnostic Kit) 0 mg IM STAT PRN; Protocol PRN Reason: Hypoglycemia Protocol Dextrose (Dextrose 5% In Water 1000 Ml) 1,000 mls @ 0 mls/hr IV .Q0M PRN; Protocol; Per Protocol PRN Reason: Hypoglycemia Protocol Ciprofloxacin (Cipro 400mg/200ml Dsw) 400 mg in 200 mls @ 133 mls/hr IVPB Q12H [facility] PRN Reason: Protocol Last Admin: 03/17/18 02:00 Dose: Not Given Insulin Human Regular (Novolin R) 0 unit SC ACHS [facility] PRN Reason: Protocol Last Admin: 03/17/18 06:00 Dose: Not Given Ketorolac Tromethamine (Toradol) 15 mg IM Q6 PRN PRN Reason: Pain, moderate (4-7) Last Admin: 03/17/18 03:35 Dose: 15 mg Losartan Potassium (Cozaar) 25 mg PO DAILY [facility] Last Admin: 03/16/18 10:28 Dose: 25 mg Methylprednisolone (Solu-Medrol) 40 mg IVP Q8 [facility] Last Admin: 03/16/18 13:55 Dose: 40 mg Nitroglycerin (Nitrostat Sl Tab) 0.4 mg SL Q5M PRN PRN Reason: Pain, Mild (1-3) Pantoprazole Sodium (Protonix Ec Tab) 40 mg PO DAILY [facility] Last Admin: 03/16/18 10:28 Dose: 40 mg Rosuvastatin Calcium (Crestor) 5 mg PO HS [facility] Last Admin: 03/16/18 21:31 Dose: 5 mg - Labs Labs: 03/16/18 06:41 03/16/18 06:41 PT 12.4 SECONDS (9.7-12.2) H 03/16/18 06:41 INR 1.1 03/16/18 06:41 APTT 31 SECONDS (21-34) 03/16/18 06:41
--- NOTE | 2018-03-17 08:10 | CON ---
DATE: 03/16/2018 HISTORY OF PRESENT ILLNESS: A 52-year-old female with a history of COPD, ____HIV, chief complaints shortness of breath, weakness, fatigue, tiredness. The patient came to the ER, advised admission with complaint of chest pain, chills. PHYSICAL EXAMINATION: GENERAL: The patient is awake, alert, and oriented. VITAL SIGNS: Temperature 98 and pulse 90. HEENT: Within normal limits. NECK: Supple. CHEST: Symmetrical. Decreased air entry. HEART: Regular. ABDOMEN: Soft. EXTREMITIES: No edema. ASSESSMENT AND PLAN: Patient suffers from , pneumonia. Patient on bed rest. IV antibiotics. Supportive care. Bronchodilator. Michela Kidd MD
[2018-03-17 09:04] VITALS: TEMP 98.5
[2018-03-17 09:29] VITALS: BP 167/84; PULSE 66
[2018-03-17] MEDS: Enoxaparin 40 mg Syringe SC SCH (09:31)
[2018-03-17] MEDS: Pantoprazole 40 mg EC Tab PO SCH (09:31)
[2018-03-17] MEDS ORDERED: Albuterol-Ipratrop 3 mg / 0.5 (3 ml) UD INH SCH (11:21)
--- NOTE | 2018-03-17 12:32 | CT ---
CT chest History: Chest pain. Comparison: X-ray dated 03/16/2018 Technique: Multiple contiguous axial images were performed through the chest without the use of intravenous contrast. Subsequently, sagittal and coronal reformatted images were obtained. This CT exam was performed using one or more of the following dose reduction techniques: Automated exposure control, adjustment of the mA and/or kV according to patient size, and/or use of iterative reconstruction technique. Findings: Right lung: Diffuse prominence of the pulmonary interstitium which may represent a venous congestion versus edema versus infiltrate. Clinical correlation. Apical pleural thickening. Scattered areas of atelectasis within the right upper lobe. Some patchy areas of atelectasis in the anterior aspect of the right middle lobe as well as the right lung base. Left lung: Diffuse prominence of the pulmonary interstitium which may represent venous congestion versus edema versus infiltrate. Clinical correlation. Apical pleural thickening. Scattered areas of atelectasis. Few scattered patchy ground-glass opacities throughout the left upper and lower lobes which may represent an acute infectious and or inflammatory process. Trachea thru central airways are patent. No significant axillary adenopathy. Heterogeneous and prominent thyroid. Correlation with thyroid ultrasound may be helpful. 1.5 centimeter prevascular lymph node. Calcification and plaque within the aorta, most prominent at the aortic knob. Coronary calcifications. Right peritracheal lymph nodes measure up to 1 centimeter. No pericardial effusion. Trace right pleural effusion. Small hiatal hernia. Degenerative changes in the spine. Impression: 1. Diffuse prominence of the pulmonary interstitium which may represent a venous congestion versus edema versus infiltrate. Clinical correlation. Apical pleural thickening. Scattered areas of atelectasis within the right upper lobe. Some patchy areas of atelectasis in the anterior aspect of the right middle lobe as well as the left lung base. Few scattered patchy ground-glass opacities throughout the left upper and lower lobes which may represent an acute infectious and or inflammatory process. Clinical correlation. 2. Heterogeneous and prominent thyroid. Correlation with thyroid ultrasound may be helpful. 3. 1.5 centimeter prevascular lymph node. 4. Calcification and plaque within the aorta, most prominent at the aortic knob. 5. Coronary calcifications. 6. Right peritracheal lymph nodes measure up to 1 centimeter. 7. Trace right pleural effusion. 8. Small hiatal hernia.
[2018-03-17] MEDS: MethylPREDNISolone 40 mg Vial IVP SCH (13:11)
--- NOTE | 2018-03-17 13:54 | CP.PCM.DIS ---
<Tanna Quiros - Last Filed: 03/17/18 18:39> Provider - Provider Date of Admission: 03/16/18 07:30 Attending physician: Lara Gurrola DO Time Spent in preparation of Discharge (in minutes): 30 Hospital Course - Lab Results Lab Results: Most Recent Lab Values WBC 6.8 K/uL (4.8-10.8) 03/16/18 06:41 RBC 4.29 Mil/uL (3.80-5.20) 03/16/18 06:41 Hgb 12.4 g/dL (11.0-16.0) 03/16/18 06:41 Hct 37.2 % (34.0-47.0) 03/16/18 06:41 MCV 86.7 fL (81.0-99.0) 03/16/18 06:41 MCH 29.0 pg (27.0-31.0) 03/16/18 06:41 MCHC 33.5 g/dL (33.0-37.0) 03/16/18 06:41 RDW 17.6 % (11.5-14.5) H 03/16/18 06:41 Plt Count 337 K/uL (130-400) 03/16/18 06:41 MPV 8.8 fL (7.2-11.7) 03/16/18 06:41 Neut % (Auto) 41.8 % (50.0-75.0) L 03/16/18 06:41 Lymph % (Auto) 44.8 % (20.0-40.0) H 03/16/18 06:41 Dillon % (Auto) 9.2 % (0.0-10.0) 03/16/18 06:41 Eos % (Auto) 3.3 % (0.0-4.0) 03/16/18 06:41 Baso % (Auto) 0.9 % (0.0-2.0) 03/16/18 06:41 Neut # (Auto) 2.8 K/uL (1.8-7.0) 03/16/18 06:41 Lymph # (Auto) 3.1 K/uL (1.0-4.3) 03/16/18 06:41 Dillon # (Auto) 0.6 K/uL (0.0-0.8) 03/16/18 06:41 Eos # (Auto) 0.2 K/uL (0.0-0.7) 03/16/18 06:41 Baso # (Auto) 0.1 K/uL (0.0-0.2) 03/16/18 06:41 PT 12.4 SECONDS (9.7-12.2) H 03/16/18 06:41 INR 1.1 03/16/18 06:41 APTT 31 SECONDS (21-34) 03/16/18 06:41 D-Dimer, Quantitative 236 ng/mlDDU (0-243) 03/16/18 06:41 Sodium 144 mmol/L (132-148) 03/16/18 06:41 Potassium 4.1 mmol/L (3.6-5.2) 03/16/18 06:41 Chloride 108 mmol/L (98-107) H 03/16/18 06:41 Carbon Dioxide 23 mmol/L (22-30) 03/16/18 06:41 Anion Gap 17 (10-20) 03/16/18 06:41 BUN 11 mg/dL (7-17) 03/16/18 06:41 Creatinine 1.1 mg/dL (0.7-1.2) 03/16/18 06:41 Est GFR ( Amer) > 60 03/16/18 06:41 Est GFR (Non-Af Amer) 52 03/16/18 06:41 POC Glucose (mg/dL) 94 mg/dL (65-110) 03/17/18 06:48 Random Glucose 91 mg/dL (65-105) 03/16/18 06:41 Hemoglobin A1c 6.2 % (4.2-6.5) 03/16/18 12:57 Calcium 8.9 mg/dl (8.6-10.4) 03/16/18 06:41 Magnesium 2.2 mg/dL (1.6-2.3) 03/16/18 12:57 Total Bilirubin 0.4 mg/dL (0.2-1.3) 03/16/18 06:41 AST 26 U/L (14-36) 03/16/18 06:41 ALT 20 U/L (9-52) 03/16/18 06:41 Alkaline Phosphatase 71 U/L (38-126) 03/16/18 06:41 Lactate Dehydrogenase 508 U/L (313-618) 03/16/18 06:41 Total Creatine Kinase 145 U/L (30-135) H 03/16/18 12:57 CK-MB (Mass) 0.86 ng/mL (0.0-3.38) 03/16/18 12:57 Troponin I < 0.0120 ng/mL (0.00-0.120) 03/16/18 12:57 NT-Pro-B Natriuret Pep 543 pg/mL (0-900) 03/16/18 06:41 Total Protein 7.9 g/dL (6.3-8.3) 03/16/18 06:41 Albumin 3.5 g/dL (3.5-5.0) 03/16/18 06:41 Globulin 4.5 gm/dL (2.2-3.9) H 03/16/18 06:41 Albumin/Globulin Ratio 0.8 (1.0-2.1) L 03/16/18 06:41 Triglycerides 106 mg/dL (0-149) 03/16/18 12:57 Cholesterol 187 mg/dL (0-199) 03/16/18 12:57 LDL Cholesterol Direct 122 mg/dL (0-129) 03/16/18 12:57 HDL Cholesterol 33 mg/dL (30-70) 03/16/18 12:57 Lipase 48 U/L (23-300) 03/16/18 06:41 Free T4 1.47 ng/dL (0.78-2.19) 03/16/18 12:57 TSH 3rd Generation 0.63 mIU/L (0.46-4.68) 03/16/18 12:57 Urine Color Yellow (YELLOW) 03/16/18 12:57 Urine Clarity Clear (Clear) 03/16/18 12:57 Urine pH 5.0 (5.0-8.0) 03/16/18 12:57 Ur Specific [place] 1.028 (1.003-1.030) 03/16/18 12:57 Urine Protein 1+ mg/dL (NEGATIVE) H 03/16/18 12:57 Urine Glucose (UA) Normal mg/dL (Normal) 03/16/18 12:57 Urine Ketones Negative mg/dL (NEGATIVE) 03/16/18 12:57 Urine Blood Negative (NEGATIVE) 03/16/18 12:57 Urine Nitrate Negative (NEGATIVE) 03/16/18 12:57 Urine Bilirubin Negative (NEGATIVE) 03/16/18 12:57 Urine Urobilinogen Normal mg/dL (0.2-1.0) 03/16/18 12:57 Ur Leukocyte Esterase Neg Mark/uL (Negative) 03/16/18 12:57 Urine WBC (Auto) 1 /hpf (0-5) 03/16/18 12:57 Urine RBC (Auto) 1 /hpf (0-3) 03/16/18 12:57 Ur Squamous Epith Cells < 1 /hpf (0-5) 03/16/18 12:57 Urine HCG, Qual Negative (NEGATIVE) 03/16/18 12:57 Urine Opiates Screen Positive (NEGATIVE) H 03/16/18 13:21 Urine Methadone Screen Negative (NEGATIVE) 03/16/18 13:21 Ur Barbiturates Screen Positive (NEGATIVE) H 03/16/18 13:21 Ur Phencyclidine Scrn Negative (NEGATIVE) 03/16/18 13:21 Ur Amphetamines Screen Negative (NEGATIVE) 03/16/18 13:21 U Benzodiazepines Scrn Negative (NEGATIVE) 03/16/18 13:21 U Oth Cocaine Metabols Positive (NEGATIVE) H 03/16/18 13:21 U Cannabinoids Screen Negative (NEGATIVE) 03/16/18 13:21 Alcohol, Quantitative 33 mg/dl (0-10) H 03/16/18 06:41 - Hospital Course Hospital Course: HPI: 52 year old female with past medical history of HTN, NIDDM, HLD, HIV, ARA, OA presented to hospital for chest pain and dyspnea. Patient states that she was unable to sleep around 2 am last night and was walking around her neighborhood when suddenly she developed 10/10 sharp, substernal pain. Pain was sharp and radiated straight back. Patient denies having similar pain in past. Pain was associated with mild dyspnea. Patient was given aspirin 325 mg in ambulance. She was then given nitro, tylenol 3 and ultram in ED. Patient reports improvement of CP after receiving the tylenol 3 and ultram. Patient denies having any recent coughing, fever, chills, history of blood clots, recent travels. Patient does complain of LE edema for past few weeks. Patient denies having any cardiac work up in past. Pmhx: stated above social: smokes 1-2 cigs for about 35 years, denies drug use. drinks ETOh on weekends PMD: Dr. Meme Ring: unknown. Patient's pharmacy: [facility] [phone] Hospital Course: Patient was admitted for chest pain. Troponins were negative x2. Cardiology Dr. Nunes was consulted. Patient was also started on Solumedrol 40mg IV and pulmonolgist Dr. Kidd was consulted. Echo was also ordered. Patient's home medications were restarted. On admission urine drug screen was positive for: cocaine, opiates; barbiturates. Patient's alcohol was 33. Images: Chest Xray: Possible cardiomegaly and mild pulmonary congestion. Chest CT: Diffuse prominence of the pulmonary interstitium which may represent a venous congestion versus edema versus infiltrate. Clinical correlation. Apical pleural thickening. Scattered areas of atelectasis within the right upper lobe. Some patchy areas of atelectasis in the anterior aspect of the right middle lobe as well as the left lung base. Few scattered patchy ground- glass opacities throughout the left upper and lower lobes which may represent an acute infectious and or inflammatory process. Clinical correlation. Heterogeneous and prominent thyroid. Correlation with thyroid ultrasound may be helpful. 1.5 centimeter prevascular lymph node. Calcification and plaque within the aorta, most prominent at the aortic knob. Coronary calcifications. Right peritracheal lymph nodes measure up to 1 centimeter. Trace right pleural effusion. Small hiatal hernia. On 03/17/18 patient refused IV antibiotics, stress test, blood work and a physical exam. Patient eloped during her hospital stay on 03/17/18. This is a summary of the patient's hospital course. Refer to full EMR for further details. Discharge Exam - Head Exam Head Exam: ATRAUMATIC, NORMOCEPHALIC Discharge Plan - Follow Up Plan Condition: STABLE Disposition: ELOPED FROM NURSING UNIT <Lara Gurrola V - Last Filed: 03/18/18 18:53> Provider - Provider Date of Admission: 03/16/18 07:30 Attending physician: Lara Gurrola DO Hospital Course - Lab Results Lab Results: Most Recent Lab Values WBC 6.8 K/uL (4.8-10.8) 03/16/18 06:41 RBC 4.29 Mil/uL (3.80-5.20) 03/16/18 06:41 Hgb 12.4 g/dL (11.0-16.0) 03/16/18 06:41 Hct 37.2 % (34.0-47.0) 03/16/18 06:41 MCV 86.7 fL (81.0-99.0) 03/16/18 06:41 MCH 29.0 pg (27.0-31.0) 03/16/18 06:41 MCHC 33.5 g/dL (33.0-37.0) 03/16/18 06:41 RDW 17.6 % (11.5-14.5) H 03/16/18 06:41 Plt Count 337 K/uL (130-400) 03/16/18 06:41 MPV 8.8 fL (7.2-11.7) 03/16/18 06:41 Neut % (Auto) 41.8 % (50.0-75.0) L 03/16/18 06:41 Lymph % (Auto) 44.8 % (20.0-40.0) H 03/16/18 06:41 Dillon % (Auto) 9.2 % (0.0-10.0) 03/16/18 06:41 Eos % (Auto) 3.3 % (0.0-4.0) 03/16/18 06:41 Baso % (Auto) 0.9 % (0.0-2.0) 03/16/18 06:41 Neut # (Auto) 2.8 K/uL (1.8-7.0) 03/16/18 06:41 Lymph # (Auto) 3.1 K/uL (1.0-4.3) 03/16/18 06:41 Dillon # (Auto) 0.6 K/uL (0.0-0.8) 03/16/18 06:41 Eos # (Auto) 0.2 K/uL (0.0-0.7) 03/16/18 06:41 Baso # (Auto) 0.1 K/uL (0.0-0.2) 03/16/18 06:41 PT 12.4 SECONDS (9.7-12.2) H 03/16/18 06:41 INR 1.1 03/16/18 06:41 APTT 31 SECONDS (21-34) 03/16/18 06:41 D-Dimer, Quantitative 236 ng/mlDDU (0-243) 03/16/18 06:41 Sodium 144 mmol/L (132-148) 03/16/18 06:41 Potassium 4.1 mmol/L (3.6-5.2) 03/16/18 06:41 Chloride 108 mmol/L (98-107) H 03/16/18 06:41 Carbon Dioxide 23 mmol/L (22-30) 03/16/18 06:41 Anion Gap 17 (10-20) 03/16/18 06:41 BUN 11 mg/dL (7-17) 03/16/18 06:41 Creatinine 1.1 mg/dL (0.7-1.2) 03/16/18 06:41 Est GFR ( Amer) > 60 03/16/18 06:41 Est GFR (Non-Af Amer) 52 03/16/18 06:41 POC Glucose (mg/dL) 94 mg/dL (65-110) 03/17/18 06:48 Random Glucose 91 mg/dL (65-105) 03/16/18 06:41 Hemoglobin A1c 6.2 % (4.2-6.5) 03/16/18 12:57 Calcium 8.9 mg/dl (8.6-10.4) 03/16/18 06:41 Magnesium 2.2 mg/dL (1.6-2.3) 03/16/18 12:57 Total Bilirubin 0.4 mg/dL (0.2-1.3) 03/16/18 06:41 AST 26 U/L (14-36) 03/16/18 06:41 ALT 20 U/L (9-52) 03/16/18 06:41 Alkaline Phosphatase 71 U/L (38-126) 03/16/18 06:41 Lactate Dehydrogenase 508 U/L (313-618) 03/16/18 06:41 Total Creatine Kinase 145 U/L (30-135) H 03/16/18 12:57 CK-MB (Mass) 0.86 ng/mL (0.0-3.38) 03/16/18 12:57 Troponin I < 0.0120 ng/mL (0.00-0.120) 03/16/18 12:57 NT-Pro-B Natriuret Pep 543 pg/mL (0-900) 03/16/18 06:41 Total Protein 7.9 g/dL (6.3-8.3) 03/16/18 06:41 Albumin 3.5 g/dL (3.5-5.0) 03/16/18 06:41 Globulin 4.5 gm/dL (2.2-3.9) H 03/16/18 06:41 Albumin/Globulin Ratio 0.8 (1.0-2.1) L 03/16/18 06:41 Triglycerides 106 mg/dL (0-149) 03/16/18 12:57 Cholesterol 187 mg/dL (0-199) 03/16/18 12:57 LDL Cholesterol Direct 122 mg/dL (0-129) 03/16/18 12:57 HDL Cholesterol 33 mg/dL (30-70) 03/16/18 12:57 Lipase 48 U/L (23-300) 03/16/18 06:41 Free T4 1.47 ng/dL (0.78-2.19) 03/16/18 12:57 TSH 3rd Generation 0.63 mIU/L (0.46-4.68) 03/16/18 12:57 Urine Color Yellow (YELLOW) 03/16/18 12:57 Urine Clarity Clear (Clear) 03/16/18 12:57 Urine pH 5.0 (5.0-8.0) 03/16/18 12:57 Ur Specific [place] 1.028 (1.003-1.030) 03/16/18 12:57 Urine Protein 1+ mg/dL (NEGATIVE) H 03/16/18 12:57 Urine Glucose (UA) Normal mg/dL (Normal) 03/16/18 12:57 Urine Ketones Negative mg/dL (NEGATIVE) 03/16/18 12:57 Urine Blood Negative (NEGATIVE) 03/16/18 12:57 Urine Nitrate Negative (NEGATIVE) 03/16/18 12:57 Urine Bilirubin Negative (NEGATIVE) 03/16/18 12:57 Urine Urobilinogen Normal mg/dL (0.2-1.0) 03/16/18 12:57 Ur Leukocyte Esterase Neg Mark/uL (Negative) 03/16/18 12:57 Urine WBC (Auto) 1 /hpf (0-5) 03/16/18 12:57 Urine RBC (Auto) 1 /hpf (0-3) 03/16/18 12:57 Ur Squamous Epith Cells < 1 /hpf (0-5) 03/16/18 12:57 Urine HCG, Qual Negative (NEGATIVE) 03/16/18 12:57 Urine Opiates Screen Positive (NEGATIVE) H 03/16/18 13:21 Urine Methadone Screen Negative (NEGATIVE) 03/16/18 13:21 Ur Barbiturates Screen Positive (NEGATIVE) H 03/16/18 13:21 Ur Phencyclidine Scrn Negative (NEGATIVE) 03/16/18 13:21 Ur Amphetamines Screen Negative (NEGATIVE) 03/16/18 13:21 U Benzodiazepines Scrn Negative (NEGATIVE) 03/16/18 13:21 U Oth Cocaine Metabols Positive (NEGATIVE) H 03/16/18 13:21 U Cannabinoids Screen Negative (NEGATIVE) 03/16/18 13:21 Alcohol, Quantitative 33 mg/dl (0-10) H 03/16/18 06:41 Attending/Attestation - Attestation Notes (Text): Attempted to see the patient during rounds, however she eloped. Patient refused stress test, help lock, blood work, and medications. Patient apparently insisting on getting her Neurotin. Resident spoke w her pharmacy but has not had script filled either. Resident attempted to call her pain management. I had attempted to looked her up at [facility] prior to my rounds as well. Nurse, Dary informed. Code echo was called. Incident by nursing staff was filled.
--- NOTE | 2018-03-18 09:39 | CARD ---
APPROVED REPORT EXAM: Two-dimensional and M-mode echocardiogram with Doppler and color Doppler. Other Information Quality : GoodRhythm : INDICATION Chest Pain HIV, RISK FACTORS Hypertension Hyperlipidemia Diabetes 2D DIMENSIONS IVSd0.7 (0.7-1.1cm)Aortic Root (2D)2.3 (2.0-3.7cm) LVDd5.9 (3.9-5.9cm)PWd0.9 (0.7-1.1cm) LVDs3.9 (2.5-4.0cm)FS (%) 34.8 % LVEF (%)63.2 (>50%) M-Mode DIMENSIONS RVDd1.99 (2.1-3.2cm)Left Atrium (MM)4.59 (2.5-4.0cm) IVSd1.44 (0.7-1.1cm)Aortic Root2.51 (2.2-3.7cm) LVDd5.35 (4.0-5.6cm)Aortic Cusp Exc.1.74 (1.5-2.0cm) PWd1.52 (0.7-1.1cm)FS (%) 33 % LVDs3.59 (2.0-3.8cm)LVEF (%)61 (>50%) Mitral Valve MV E Mzbsqkgb586.8cm/sMV A Vpeuloha54.1cm/sE/A ratio2.0 TDI E/Lateral E'0.0E/Medial E'0.0 Tricuspid Valve TR Peak [id number]/sTR Peak Gr.[id number] LEFT VENTRICLE The left ventricle is normal size. There is mild to moderate concentric left ventricular hypertrophy. Left ventricle systolic function is normal. The Ejection Fraction is 60-65%. There is normal LV segmental wall motion. The left ventricular diastolic function is normal. RIGHT VENTRICLE The right ventricle is normal size. There is normal right ventricular wall thickness. The right ventricular systolic function is normal. ATRIA The left atrium size is normal. The right atrium size is normal. The interatrial septum is intact with no evidence for an atrial septal defect. AORTIC VALVE The aortic valve is normal in structure. No aortic regurgitation is present. There is no aortic valvular stenosis. There is no aortic valvular vegetation. MITRAL VALVE The mitral valve is normal in structure. There is no evidence of mitral valve prolapse. There is no mitral valve stenosis. Mitral regurgitation is mild. TRICUSPID VALVE The tricuspid valve is normal in structure. There is mild tricuspid regurgitation. Right ventricular systolic pressure is estimated at less than 30 mmHg. There is no pulmonary hypertension. PULMONIC VALVE The pulmonic valve is not well visualized. There is no pulmonic valvular regurgitation. GREAT VESSELS The aortic root is normal in size. PERICARDIAL EFFUSION There is no pericardial effusion. <Conclusion> Left ventricle systolic function is normal. The Ejection Fraction is 60-65%. Hypertensive heart disease. No aortic regurgitation is present. Mitral regurgitation is mild. There is mild tricuspid regurgitation. There is no pulmonary hypertension. There is no pulmonic valvular regurgitation.
== END 2018-03-17 14:20 | disposition left against medical advice (07) ==
LOC: C.ER 04:47 → C.6T 07:30 → C.9E 07:30
PROVIDERS: ADMIT Hospitalist; ATTEND Hospitalist
DX: R07.9 Chest pain, unspecified (principal); E11.9 Type 2 diabetes mellitus without complications; I10 Essential (primary) hypertension; G47.33 Obstructive sleep apnea (adult) (pediatric); J44.9 Chronic obstructive pulmonary disease, unspecified; B20 Human immunodeficiency virus [HIV] disease; F17.200 Nicotine dependence, unspecified, uncomplicated
CPT/HCPCS: 71045; 71250; 80053; 80061; 80320; 80324; 80345; 80346; 80349; 80353; 80358; 80361; 81001; 82948; 83036; 83615; 83690; 83735; 83880; 83992; 84439; 84443; 84484; 84703; 85025; 85378; 85610; 85730; 93306; 94640; 97162; 97166; 97530; 99285; G0378; G8978; G8979; G8987; G8988; J0744; J1650; J1885; J2920

== ENCOUNTER 2018-07-14 00:51 | Emergency (ER) | payer MEDICAID ==
[2018-07-14 01:53] LABS: SQUAMOUS EPITHIAL < 1 /hpf (0-5); URINE BACTERIA RARE (<OCC); URINE BILIRUBIN NEGATIVE (NEGATIVE); URINE BLOOD 1+ (NEGATIVE); URINE CLARITY Clear (Clear); URINE COLOR Straw (YELLOW); URINE GLUCOSE (UA) NORMAL (Normal); URINE LEUKOCYTE ESTERASE NEG Leu/uL (Negative); URINE PROTEIN NEGATIVE (NEGATIVE); URINE UROBILINOGEN NORMAL mg/dL (0.2-1.0)
[2018-07-14 02:07] LABS: BARBITURATES, UR NEGATIVE (NEGATIVE); BENZODIAZEPINES, UR NEGATIVE (NEGATIVE); PHENCYCLIDINE, UR NEGATIVE (NEGATIVE)
[2018-07-14 02:08] LABS: OPIATES, UR POSITIVE (NEGATIVE)
[2018-07-14 02:36] LABS: ALB/GLOB RATIO 0.9 (1.0-2.1); ALBUMIN 4.2 g/dL (3.5-5.0); ALT/SGPT 15 U/L (9-52); AST/SGOT 35 U/L (14-36); BLOOD UREA NITROGEN 9 mg/dL (7-17); CALCIUM 8.8 mg/dl (8.6-10.4); GFR NON-AFRICAN AMERICAN 52
--- NOTE | 2018-07-14 02:56 | C.PDOC ---
History Of Present Illness 52 year old female presents to the ED heavy alcohol intake. Patient is also c/o pain and swelling to the left facial area. Patient denies SI/HI, hallucinations, CP, SOB, trauma, injury, fall. Chief Complaint (Nursing): Substance Abuse History Per: Patient History/Exam Limitations: intoxication Onset/Duration Of Symptoms: Days Current Symptoms Are (Timing): Still Present Suicide/Self Injury Attempted (Context): None Modifying Factor(s): Alcohol Associated Symptoms: denies: Depression, Suicidal Thoughts, Suicidal Plan Additional History Per: Patient Past Medical History Reviewed: Historical Data, Nursing Documentation, Vital Signs Vital Signs: Last Vital Signs Temp 98 F 07/14/18 01:06 Pulse 91 H 07/14/18 01:06 Resp 18 07/14/18 01:06 BP 142/85 07/14/18 01:06 Pulse Ox 97 07/14/18 01:06 - Medical History PMH: Arthritis, Diabetes, HIV, HTN, Hypercholesterolemia Denies: Chronic Kidney Disease Surgical History: Hernia Repair Family History: States: Unknown Family Hx - Social History Hx Tobacco Use: Yes Hx Alcohol Use: Yes Hx Substance Use: No - Immunization History Hx Tetanus Toxoid Vaccination: No Hx Influenza Vaccination: Yes Hx Pneumococcal Vaccination: No Review Of Systems Constitutional: Negative for: Fever, Chills Eyes: Negative for: Vision Change Cardiovascular: Negative for: Chest Pain Respiratory: Negative for: Shortness of Breath Gastrointestinal: Negative for: Nausea, Vomiting, Abdominal Pain Skin: Negative for: Rash Neurological: Negative for: Weakness, Numbness Psych: Negative for: Depression, Suicidal ideation Physical Exam - Physical Exam Appears: Non-toxic, No Acute Distress Skin: Normal Color, Warm, Dry Head: Atraumatic, Normacephalic, Swelling (soft tissue left facial area) Eye(s): bilateral: Normal Inspection, PERRL, EOMI Neck: Normal ROM, No Midline Cervical Tenderness, Supple Chest: Symmetrical Cardiovascular: Rhythm Regular Respiratory: Normal Breath Sounds, No Rales, No Rhonchi, No Wheezing Gastrointestinal/Abdominal: Soft, No Tenderness, No Guarding, No Rebound Extremity: Normal ROM, No Tenderness, No Swelling Neurological/Psych: Oriented x3, Normal Speech, Normal Cognition Gait: Steady ED Course And Treatment - Laboratory Results Result Diagrams: 07/14/18 02:17 O2 Sat by Pulse Oximetry: 97 (ON RA) Pulse Ox Interpretation: Normal - CT Scan/US CT facials Other Rad Studies (CT/US): Read By Radiologist, Radiology Report Reviewed CT/US Interpretation: CT scan of the facial bones. Indication: Trauma. Techni que: Axial CT scan images without contrast. Reformatted coronal and sagittal images. Findings: Mildly depressed fracture of the left nasal bone. Left facial soft tissue contusion/hematoma. Chronic deformities of the lamina papyracea. Normal bilateral orbital contents. Normal bilateral medial and inferior orbital pretty. Normal bilateral maxillary bones. Normal bilateral maxillary sinuses. Normal bilateral frontozygomatic arches. Normal bilateral zygomatic temporal arches. Normal nasal bones. Normal anterior nasal spine. There is no demonstrated fracture. Normal visualized frontal, ethmoidal and sphenoid sinuses. Impression: No CT evidence of acute bone pathology. Thank you for your kind referral of this patient. . Electronically signed on Jul 14, 2018 3:10:58 AM EDT by: Luis Carlos Leal M.D., Certified by ZANE TOVAR, Neuroradiology CT chest Other Rad Studies (CT/US): Read By Radiologist, Radiology Report Reviewed CT/US Interpretation: CT SCAN OF THE CHEST WITHOUT IV CONTRAST. CLINICAL INDICATION: Trauma. TECHNIQUE: Axial and reformatted sagittal and coronal images of the chest obtained without IV contrast administration. FINDINGS: Normal unenhanced main pulmonary artery and right and left pulmonary arteries. Normal bilateral peripheral pulmonary arteries. Airspace consolidation of the left upper lobe. Normal thoracic aorta and visualized great vessels. There is no demonstrated aortic aneurysm. Normal heart and pericardium. Normal mediastinum. Normal hilar regions. Normal visualized trachea and bronchi. The lungs are well expanded. Normal pulmonary parenchyma. Normal pleura. Normal chest wall structures. Normal osseous structures. Normal visualized upper abdomen. IMPRESSION: Airspace consolidation of the left upper lobe. Pulmonary contusion versus aspiration pneumonia. . Electronically signed on Jul 14, 2018 3:35:34 AM EDT by: Luis Carlos Leal M.D., Certified by ZANE TOVAR, N euroradiology Medical Decision Making Medical Decision Making: Plan: * CT head * Ct orbits * Labs * UA Disposition Counseled Patient/Family Regarding: Diagnosis - Disposition Referrals: Non [facility] Provider, [Primary Care Provider] - [facility] [Outside] Disposition: HOME/ ROUTINE Disposition Time: 06:00 Condition: STABLE Prescriptions: Acetaminophen [Tylenol 325mg tab] 650 mg PO Q4 #20 tab Azithromycin [Zithromax] 500 mg PO DAILY #7 tablet Instructions: Bacterial Upper Respiratory Infection, Adult, Alcohol Abuse and Alcoholism (DC), Opioid Use Disorder, Polysubstance Abuse, Contusion (DC) Forms: [employer] [place] (Armenian) - POA Present On Arrival: None - Clinical Impression Clinical Impression: Upper respiratory infection, Acute alcohol intoxication, Substance abuse - Scribe Statement The provider has reviewed the documentation as recorded by the Scribe Gomez Mckeon All medical record entries made by the Scribe were at my direction and personally dictated by me. I have reviewed the chart and agree that the record accurately reflects my personal performance of the history, physical exam, medical decision making, and the department course for this patient. I have also personally directed, reviewed, and agree with the discharge instructions and disposition.
[2018-07-14 04:39] VITALS: BP 145/74; PULSE 95; RESP 20; TEMP 99.9; O2SAT 96
--- NOTE | 2018-07-14 10:59 | CT ---
Date of service: 07/14/2018 PROCEDURE: CT MAXILLOFACIAL BONES WITHOUT CONTRAST HISTORY: injury COMPARISON: None available. TECHNIQUE: Contiguous axial CT images of the maxillofacial bones were obtained. Coronal and sagittal reformats were generated. Radiation dose: Total exam DLP = 730.88 mGy-cm. This CT exam was performed using one or more of the following dose reduction techniques: Automated exposure control, adjustment of the mA and/or kV according to patient size, and/or use of iterative reconstruction technique. FINDINGS: NASAL BONES: There is a fracture deformity of the left nasal bones likely chronic due to the lack of significant overlying soft tissue swelling. ORBITS: There is left pre maxillary periorbital and supraorbital soft tissue swelling that extends laterally over the left zygomatic arch left lateral periorbital/temporal region. There are contour deformities of the both lamina papyracea which bowl medially. Findings could represent developmental anomalies versus old fracture deformities. There also medial bowing changes of both medial recti muscles right more so than left. Globes intact and lenses appropriately located. There are no retrobulbar hemorrhages or collections.. The optic nerves unremarkable. PARANASAL SINUSES/MASTOIDS: Minimal mucosal thickening within the inferior margins both maxillary antra. MAXILLA: Unremarkable. MANDIBLE/ TEMPOROMANDIBULAR JOINTS: Unremarkable. SKULL BASE: Unremarkable. TEMPORAL BONES: Middle ears and mastoid grossly unremarkable. OTHER FINDINGS: None. IMPRESSION: Moderate to fairly significant left-sided facial soft tissue swelling. Suspect chronic left-sided nasal bone fracture deformity. The lamina papyracea are bowed medially which could be developmental versus sequela of old trauma. Clinical correlation recommended. Minimal mucosal thickening both maxillary antra.
--- NOTE | 2018-07-14 12:34 | CT ---
Date of service: 07/14/2018. PROCEDURE: CT Chest without contrast HISTORY: Chest injury. COMPARISON: Correlation made with prior CT scan chest dated 03/17/2018. TECHNIQUE: Contiguous axial images were obtained through the chest without intravenous contrast enhancement. Sagittal and coronal reconstructions were performed. Radiation dose (DLP): 828.48 mGy-cm. This CT exam was performed using one or more of the following dose reduction techniques: Automated exposure control, adjustment of the mA and/or kV according to patient size, and/or use of iterative reconstruction technique. FINDINGS: LUNGS: There is localized area of consolidation in the left anteromedial upper lobe with a few air bronchograms. Findings may represent atelectasis however clinical correlation with history is recommended as possibility of an acute infiltrate not excluded. Linear atelectasis and/or scarring changes also noted in the lingular and middle lobe regions. Mild passive atelectasis both posterior lower lung hays. MEDIASTINUM: Heart is enlarged. No significant pericardial effusion. Ascending thoracic aorta measures approximately 2.9 the cm and descending thoracic aorta measures approximately 2.7 cm. Pulmonary trunk measures approximately 2.8 cm. There are a few small-borderline nonspecific mediastinal lymph nodes the largest in the prevascular space measuring approximately 2.25 and 1.6 cm. Evaluation for hilar adenopathy is limited due to the lack circulating intravenous contrast material.. Central airways are midline patent. There are no large central endoluminal lesions. PLEURA: No pleural fluid. No pneumothorax. BONES: Mild multilevel degenerative spondylosis of the thoracic spine. Minor chronic anterior wedge deformities of few upper/midthoracic segments. UPPER ABDOMEN: The visualized upper abdominal structures unremarkable. OTHER FINDINGS: The thyroid gland is prominent particularly the right lobe with heterogeneous appearance part of which is likely due to crossing streak and beam hardening artifact arising from dense clavicles and shoulder girdles. Thyroid ultrasound follow-up recommended. IMPRESSION: Left upper lobe consolidation. Few small to borderline mediastinal lymph nodes. Mild cardiomegaly. Slightly prominent heterogeneous thyroid gland. Recommend follow-up thyroid ultrasound.
== END 2018-07-14 05:41 | disposition home or self-care (01) ==
LOC: SUPCPDRO 00:51 → C.ER 00:51
DX: J06.9 Acute upper respiratory infection, unspecified (principal); F10.129 Alcohol abuse with intoxication, unspecified; Y90.5 Blood alcohol level of 100-119 mg/100 ml; F19.10 Other psychoactive substance abuse, uncomplicated; I10 Essential (primary) hypertension; E11.9 Type 2 diabetes mellitus without complications; E78.00 Pure hypercholesterolemia, unspecified; F17.210 Nicotine dependence, cigarettes, uncomplicated

== ENCOUNTER 2018-09-30 08:09 | Emergency (ER) | payer MEDICAID ==
--- NOTE | 2018-09-30 08:24 | C.PDOC ---
History Of Present Illness 52 years old female with PMHx of HTN, NIDDM, HLD, HIV, ARA, OA, and CHRONIC PAIN DUE TO NEUROPATHY, presents to ED for complaints of chest pain. Patient is on a fentanyl patch. She has Hx of cocaine, opiates; barbiturates, and ETOH abuse. Patient admits to drinking alcohol last night. On 03/17/18 patient was seen in this ER with a Chest CT done but she refused IV antibiotics, stress test, blood work and a physical exam. Patient also eloped during her hospital stay on 03/17/18. Contrary to Triage, Patient does not mention complaints of cough, chills, fever, malaise, and black mucus. past medical history of HTN, NIDDM, HLD, HIV, ARA, OA, CHRONIC PAIN DUE TO NEUROPATHY. ON FENTANYL PATCH. HO + cocaine, opiates; barbiturates, ETOH ABUSE. Chest CT: On 03/17/18 patient refused IV antibiotics, stress test, blood work and a physical exam. HO eloped during her hospital stay on 03/17/18. Time Seen by Provider: 09/30/18 08:14 Chief Complaint (Nursing): Chest Pain History Per: Patient History/Exam Limitations: no limitations Onset/Duration Of Symptoms: Hrs Current Symptoms Are (Timing): Still Present Recent travel outside of the [place]: No Past Medical History Reviewed: Historical Data, Nursing Documentation, Vital Signs - Medical History PMH: Arthritis, Diabetes, HIV, HTN, Hypercholesterolemia Denies: Chronic Kidney Disease Surgical History: Hernia Repair Family History: States: Unknown Family Hx - Social History Hx Tobacco Use: Yes Hx Alcohol Use: Yes Hx Substance Use: No - Immunization History Hx Tetanus Toxoid Vaccination: No Hx Influenza Vaccination: Yes Hx Pneumococcal Vaccination: No Review Of Systems Constitutional: Negative for: Fever, Chills Cardiovascular: Positive for: Chest Pain Gastrointestinal: Negative for: Nausea, Vomiting, Abdominal Pain, Diarrhea Skin: Negative for: Rash Neurological: Negative for: Weakness, Numbness Physical Exam - Physical Exam Appears: Non-toxic, In Acute Distress (Moderate ) Skin: Warm, Dry, No Rash Head: Atraumatic, Normacephalic Eye(s): bilateral: Normal Inspection, PERRL, EOMI Oral Mucosa: Moist Neck: Normal ROM, Supple Chest: Symmetrical, No Tenderness Cardiovascular: Rhythm Regular Respiratory: Normal Breath Sounds, No Rales, No Rhonchi, No Wheezing, Other (NARD) Gastrointestinal/Abdominal: Soft, No Tenderness Extremity: Normal ROM Extremity: Bilateral: Atraumatic, Normal Color And Temperature, Normal ROM Pulses: Left Radial: Normal, Right Radial: Normal Neurological/Psych: Oriented x3, Normal Speech ED Course And Treatment - Laboratory Results Result Diagrams: 09/30/18 09:14 09/30/18 09:14 ECG: Interpreted By Me ECG Rhythm: Sinus Rhythm ECG Interpretation: Normal Rate From EC - Radiology CXR: Interpreted by Me, Viewed By Me CXR Interpretation: Yes: No Acute Disease Nexus Criteria: Negative Progress - Re-Evaluation Re-evaluation Note: 09/30/18 10:58 SLEEPING NAD. REFUSING UA. REFUSING FURTHER EVAL. DC - Data Reviewed Data Reviewed: Lab, Diagnostic imaging, EKG, Old records Medical Decision Making Medical Decision Making: Plan: * Morphine * Nitroglycerine * Blood work * CXR * EKG * Urinalysis CXR: * Negative. Unchanged from 03/26/18 Disposition Counseled Patient/Family Regarding: Studies Performed, Diagnosis, Need For Followup - Disposition Referrals: [facility] [Outside] [facility] [Outside] Disposition: HOME/ ROUTINE Disposition Time: 10:59 Condition: IMPROVED Instructions: Chest Pain (DC) Forms: [facility] (Algerian), General Discharge Instructions - Clinical Impression Clinical Impression: Chest pain, Chronic neuropathic pain - Scribe Statement The provider has reviewed the documentation as recorded by the Scribniurka Holland All medical record entries made by the Scribe were at my direction and personally dictated by me. I have reviewed the chart and agree that the record accurately reflects my personal performance of the history, physical exam, medical decision making, and the department course for this patient. I have also personally directed, reviewed, and agree with the discharge instructions and disposition.
[2018-09-30] MEDS ORDERED: Morphine 4 MG/ML VIAL IVP STA (08:32)
[2018-09-30 09:06] VITALS: RESP 18
[2018-09-30 09:21] LABS: BASO # 0.1 K/uL (0.0-0.2); BASO % 0.7 % (0.0-2.0); EOS # 0.1 K/uL (0.0-0.7); EOS % 1.1 % (0.0-4.0); HEMOGLOBIN 13.7 g/dL (11.0-16.0); LYMPH # 1.8 K/uL (1.0-4.3); LYMPH % 21.2 % (20.0-40.0); MEAN CORPUSCULAR HEMOGLOBIN 29.6 pg (27.0-31.0); MEAN CORPUSCULAR HGB CONC 33.2 g/dL (33.0-37.0); MEAN PLATELET VOLUME 9.1 fL (7.2-11.7); MONO # 0.7 K/uL (0.0-0.8); MONO % 8.5 % (0.0-10.0); NEUT # 5.8 K/uL (1.8-7.0); NEUT % 68.5 % (50.0-75.0); RBC 4.65 Mil/uL (3.80-5.20); RED CELL DISTRIBUTION WIDTH 15.7 % (11.5-14.5); WHITE BLOOD COUNT 8.4 K/uL (4.8-10.8)
[2018-09-30 09:39] LABS: ALB/GLOB RATIO 0.9 (1.0-2.1); ALBUMIN 4.4 g/dL (3.5-5.0); BLOOD UREA NITROGEN 26 mg/dL (7-17); CALCIUM 9.2 mg/dl (8.6-10.4); GFR NON-AFRICAN AMERICAN 58; LIPASE 64 U/L (23-300)
[2018-09-30 09:40] LABS: ALT/SGPT 16 U/L (9-52); AST/SGOT 49 U/L (14-36)
[2018-09-30 09:47] LABS: B-TYPE NATRIURETIC PEPTIDE 356 pg/mL (0-900)
--- NOTE | 2018-09-30 10:15 | RAD ---
Date of service: 09/30/2018 PROCEDURE: CHEST RADIOGRAPH, 1 VIEW HISTORY: chest pain COMPARISON: None available. FINDINGS: LUNGS: Clear. PLEURA: No pneumothorax or pleural fluid seen. CARDIOVASCULAR: No aortic atherosclerotic calcification present. Normal. OSSEOUS STRUCTURES: No significant abnormalities. VISUALIZED UPPER ABDOMEN: Normal. OTHER FINDINGS: None. IMPRESSION: No active disease. Concordant results with the preliminary interpretation rendered by the emergency department physician procedure.
[2018-09-30 10:18] VITALS: BP 121/73; PULSE 76; TEMP 98.9; O2SAT 100
== END 2018-09-30 11:14 | disposition home or self-care (01) ==
LOC: C.ER 08:09
DX: R07.9 Chest pain, unspecified (principal); G89.29 Other chronic pain; M79.2 Neuralgia and neuritis, unspecified; E11.9 Type 2 diabetes mellitus without complications; E78.00 Pure hypercholesterolemia, unspecified; I10 Essential (primary) hypertension; M19.90 Unspecified osteoarthritis, unspecified site; G47.33 Obstructive sleep apnea (adult) (pediatric); Z72.0 Tobacco use

== ENCOUNTER 2018-12-07 09:31 | Observation (INO) | payer MEDICAID ==
[2018-12-07 09:50] VITALS: BMI 45.1
[2018-12-07] MEDS ORDERED: Nitroglycerin 2% Ointment Foilpak UD TOP STA (09:53)
[2018-12-07] MEDS ORDERED: Aspirin 325 mg EC Tablets PO STA (09:53)
[2018-12-07 10:27] LABS: BASO % 0.7 % (0.0-2.0); EOS # 0.2 K/uL (0.0-0.7); EOS % 2.9 % (0.0-4.0); HEMOGLOBIN 12.5 g/dL (11.0-16.0); LYMPH # 2.4 K/uL (1.0-4.3); LYMPH % 40.2 % (20.0-40.0); MEAN CELL VOLUME 89.2 fL (81.0-99.0); MEAN CORPUSCULAR HEMOGLOBIN 28.3 pg (27.0-31.0); MEAN CORPUSCULAR HGB CONC 31.8 g/dL (33.0-37.0); MEAN PLATELET VOLUME 8.7 fL (7.2-11.7); MONO # 0.9 K/uL (0.0-0.8); MONO % 14.7 % (0.0-10.0); NEUT # 2.5 K/uL (1.8-7.0); NEUT % 41.5 % (50.0-75.0); RBC 4.41 Mil/uL (3.80-5.20); RED CELL DISTRIBUTION WIDTH 19.1 % (11.5-14.5)
[2018-12-07] MEDS ORDERED: Nitroglycerin 2% Ointment Foilpak UD TOP ONE (10:29)
[2018-12-07] MEDS ORDERED: Aspirin 325 mg EC Tablets PO ONE (10:29)
[2018-12-07 10:37] LABS: PROTHROMBIN TIME 11.4 SECONDS (9.7-12.2)
[2018-12-07 10:53] LABS: BLOOD UREA NITROGEN 19 mg/dL (7-17); CALCIUM 8.9 mg/dl (8.6-10.4); GFR NON-AFRICAN AMERICAN 58; HDL CHOLESTEROL 51 mg/dL (30-70)
[2018-12-07 10:59] LABS: ALB/GLOB RATIO 1.1 (1.0-2.1); ALBUMIN 4.5 g/dL (3.5-5.0); ALT/SGPT < 6 U/L (9-52); AST/SGOT 79 U/L (14-36)
--- NOTE | 2018-12-07 11:00 | C.PDOC ---
History Of Present Illness 53 years old female with PMHx of diabetes presents to ED for complaints of constant chest pain that began yesterday night. Patient appears intoxicated with smell of ETOH on his breath. Patient admits to drinking yesterday but denies any today. Denies any other complaints. Time Seen by Provider: 12/07/18 09:47 Chief Complaint (Nursing): Chest Pain History Per: Patient History/Exam Limitations: no limitations Onset/Duration Of Symptoms: Hrs Current Symptoms Are (Timing): Still Present Modifying Factors: None Exacerbating Factors: None Alleviating Factors: None Recent travel outside of the [place]: No Past Medical History Reviewed: Historical Data, Nursing Documentation, Vital Signs Vital Signs: Last Vital Signs Temp 98.7 F 12/07/18 09:37 Pulse 70 12/07/18 10:00 Resp 20 12/07/18 09:37 BP 110/74 12/07/18 10:00 Pulse Ox 95 12/07/18 09:37 - Medical History PMH: Arthritis, Diabetes, HIV, HTN, Hypercholesterolemia Denies: Chronic Kidney Disease Surgical History: Hernia Repair Family History: States: Unknown Family Hx - Social History Hx Tobacco Use: Yes Hx Alcohol Use: No Hx Substance Use: No - Immunization History Hx Tetanus Toxoid Vaccination: No Hx Influenza Vaccination: No Hx Pneumococcal Vaccination: No Review Of Systems Except As Marked, All Systems Reviewed And Found Negative. Constitutional: Negative for: Fever, Chills Cardiovascular: Positive for: Chest Pain Respiratory: Negative for: Shortness of Breath Gastrointestinal: Negative for: Nausea, Vomiting, Diarrhea Skin: Negative for: Rash Neurological: Negative for: Weakness, Numbness Physical Exam - Physical Exam Appears: Non-toxic, No Acute Distress, Other (ETOH on breath ) Skin: Normal Color, Warm, Dry, No Rash Head: Atraumatic, Normacephalic Eye(s): bilateral: Normal Inspection, PERRL, EOMI Oral Mucosa: Moist Teeth: Other (Poor Dentition ) Throat: Normal, No Erythema, No Exudate, No Drooling, No Mass Neck: Normal ROM, Supple Chest: Symmetrical, No Tenderness Cardiovascular: Rhythm Regular, No Murmur Respiratory: Normal Breath Sounds, No Rales, No Rhonchi, No Wheezing Gastrointestinal/Abdominal: Normal Exam, Bowel Sounds (Active ), Soft, No Tenderness, No Distention, No Guarding, No Rebound Extremity: Normal ROM Extremity: Bilateral: Atraumatic, Normal Color And Temperature, Normal ROM Pulses: Left Radial: Normal, Right Radial: Normal Neurological/Psych: Oriented x3, Normal Speech Gait: Steady ED Course And Treatment - Laboratory Results Result Diagrams: 12/07/18 10:22 12/07/18 10:22 Lab Results: PT 11.4 SECONDS (9.7-12.2) 12/07/18 10:22 INR 1.0 12/07/18 10:22 APTT 32 SECONDS (21-34) 12/07/18 10:22 O2 Sat by Pulse Oximetry: 95 (RA) Pulse Ox Interpretation: Normal - Other Rad CXR X-Ray: Viewed By Me, Read By Radiologist Interpretation: Date of service: 12/07/2018. HISTORY: chest pain. COMPARISON: Comparison chest 09/30/2018. FINDINGS: LUNGS: Poor inspiration with low lung volumes, crowded bronchovascular markings and mild bibasilar atelectasis. PLEURA: No significant pleural effusion identified, no pneumothorax apparent. CARDIOVASCULAR: Minor aortic atherosclerotic calcification present. Cardiomegaly. OSSEOUS STRUCTURES: No significant abnormalities. VISUALIZED UPPER ABDOMEN: Normal. OTHER FINDINGS: None. IMPRESSION: No active disease. Medical Decision Making Medical Decision Making: Plan: * Aspirin * Nitroglycerin * CXR * Urinalysis * O2 via nasal cannula * Blood work * EKG EKG: * Sinus arrhythmia at 74 bpm * Inverted T Waves and lateral leads * Prolonged QT 12:30PM: * Accepted for telemetry by Temi Hodges Disposition Discussed With : Lara Gurrola Doctor Will See Patient In The: Hospital Counseled Patient/Family Regarding: Studies Performed, Diagnosis - Disposition Disposition: HOSPITALIZED Disposition Time: 12:34 Condition: STABLE - POA Present On Arrival: None Core Measure Indicators: Chest Pain - Clinical Impression Clinical Impression: Chest pain - Scribe Statement The provider has reviewed the documentation as recorded by the Les Holland All medical record entries made by the Scribe were at my direction and personally dictated by me. I have reviewed the chart and agree that the record accurately reflects my personal performance of the history, physical exam, medical decision making, and the department course for this patient. I have also personally directed, reviewed, and agree with the discharge instructions and disposition.
[2018-12-07 11:03] LABS: B-TYPE NATRIURETIC PEPTIDE 841 pg/mL (0-900)
[2018-12-07 11:04] LABS: LDL CHOLESTEROL 114 mg/dL (0-129)
--- NOTE | 2018-12-07 12:41 | CP.PCM.HP ---
History of Present Illness - History of Present Illness History of Present Illness: 53 year old female with past medical history of HTN, NIDDM, HLD, HIV, ARA, OA presented to hospital for chest pain. Patient appears intoxicated with smell of ETOH on his breath and of urine. Per the ER physician patient admits to john parkinson yesterday but denies any today. Denies any other complaints. Per Chart Review as patient was somnolent and intoxicated: PMD: Dr. Valentine Past Medical History: HTN, NIDDM, HLD, HIV, ARA, OA Social History: smokes, uses alcohol. Present on Admission - Present on Admission Any Indicators Present on Admission: No Review of Systems - Review of Systems Systems not reviewed;Unavailable: Altered Mental Status Past Patient History - Infectious Disease Hx of Infectious Diseases: None - Past Medical History & Family History Past Medical History?: Yes - Past Social History Smoking Status: Light Smoker < 10 Cigarettes Daily - CARDIAC Hx Hypercholesterolemia: Yes Hx Hypertension: Yes - PULMONARY Hx Respiratory Disorders: No - NEUROLOGICAL Hx Neurological Disorder: No - HEENT Hx HEENT Problems: No - RENAL Hx Chronic Kidney Disease: No - ENDOCRINE/METABOLIC Hx Diabetes Mellitus Type 2: Yes - HEMATOLOGICAL/ONCOLOGICAL Hx Human Immunodeficiency Virus (HIV): Yes - INTEGUMENTARY Hx Dermatological Problems: No - MUSCULOSKELETAL/RHEUMATOLOGICAL Hx Arthritis: Yes - GASTROINTESTINAL Hx Gastrointestinal Disorders: No - GENITOURINARY/GYNECOLOGICAL Hx Genitourinary Disorders: No - PSYCHIATRIC Hx Substance Use: No - SURGICAL HISTORY Hx Surgeries: Yes Hx Section: Yes (X2) Hx Herniorrhaphy: Yes - ANESTHESIA Hx Anesthesia: Yes Hx Anesthesia Reactions: No Meds Allergies/Adverse Reactions: Allergies Allergy/AdvReac Type Severity Reaction Status Date / Time grape Allergy ITCHING Verified 12/07/18 09:37 Penicillins Allergy SWELLING Verified 12/07/18 09:37 Physical Exam - Constitutional Appears: No Acute Distress - Head Exam Head Exam: ATRAUMATIC, NORMAL INSPECTION - ENT Exam ENT Exam: Mucous Membranes Dry - Respiratory Exam Respiratory Exam: NORMAL BREATHING PATTERN - Cardiovascular Exam Cardiovascular Exam: REGULAR RHYTHM, +S1, +S2 - GI/Abdominal Exam GI & Abdominal Exam: Normal Bowel Sounds, Soft. absent: Tenderness - Extremities Exam Extremities exam: Positive for: pedal edema (+ 2 pedal edema ) - Psychiatric Exam Psychiatric exam: Flat Affect Results - Vital Signs Recent Vital Signs: Last Vital Signs Temp 98.7 F 12/07/18 09:37 Pulse 66 12/07/18 12:00 Resp 15 12/07/18 12:00 BP 94/52 L 12/07/18 12:00 Pulse Ox 95 12/07/18 12:37 - Labs Result Diagrams: 12/07/18 10:22 12/07/18 10:22 Labs: Laboratory Results - last 24 hr 12/07/18 12/07/18 12/07/18 10:22 10:22 10:22 WBC 6.0 RBC 4.41 Hgb 12.5 Hct 39.4 MCV 89.2 MCH 28.3 MCHC 31.8 L RDW 19.1 H Plt Count 364 MPV 8.7 Neut % (Auto) 41.5 L Lymph % (Auto) 40.2 H [place] % (Auto) 14.7 H Eos % (Auto) 2.9 Baso % (Auto) 0.7 Neut # (Auto) 2.5 Lymph # (Auto) 2.4 [place] # (Auto) 0.9 H Eos # (Auto) 0.2 Baso # (Auto) 0.0 PT 11.4 INR 1.0 APTT 32 Sodium 137 Potassium 5.2 Chloride 104 Carbon Dioxide 25 Anion Gap 12 BUN 19 H Creatinine 1.0 Est GFR ( Amer) > 60 Est GFR (Non-Af Amer) 58 Random Glucose 110 H Calcium 8.9 Total Bilirubin 1.3 AST 79 H D ALT < 6 L D Alkaline Phosphatase 105 Troponin I 0.0210 NT-Pro-B Natriuret Pep 841 Total Protein 8.8 H Albumin 4.5 Globulin 4.2 H Albumin/Globulin Ratio 1.1 Triglycerides 103 Cholesterol 183 LDL Cholesterol Direct 114 HDL Cholesterol 51 Alcohol, Quantitative < 10 Assessment & Plan - Assessment and Plan (Free Text) Assessment: Chest pain - Cardiology Consult: Dr. Lagunas --> help appreciated - Nitro 0.5 topical given in the ER - Will check serial troponins and EKG * trop x2 negative * proBNP 841 - UDS: opiates +; cocaine + - Alcohol <10 - Images: * Chest Xray: no active disease * ECHO (03/16/18): EF 60-65%; left ventricle systolic function is normal. Hypertensive heart disease (please see full report). - Medications: * Aspirin 81 mg po daily * Lovenox 90mg sc q12h Polysubstance Abuse - UDS: opiates +; cocaine + - Alcohol <10 History of COPD - Chest Xray: no active disease - duonebs q4 History of HTN - Medications: * Losartan 25mg po daily History of HLD - Crestor 5mg HS - Lipid Panel wnl History of DM - Accuchecks ACHS - ISS - hypoglycemic protocol - heart healthy diet History of HIV - Patient will follow up with outpatient infectious disease physician History of ARA - CPAP at night time Prophylaxis - SCDs - Lovenox 90mg sc q12h - GI prophylaxis not indicated - Physical Therapy Case discussed with Dr. Laura Quiros PGY-2
[2018-12-07 13:26] LABS: ABG ALLEN TEST POS; ARTERIAL BLOOD GAS HCO3 25.4 mmol/L (21-28); ARTERIAL BLOOD GAS O2 SAT 95.8 % (95-98); ARTERIAL BLOOD GAS PCO2 49 mm/Hg (35-45); ARTERIAL BLOOD GAS PH 7.35 (7.35-7.45); ARTERIAL BLOOD GAS PO2 65 mm/Hg (80-100); ARTERIAL BLOOD GAS TCO2 28.6 mmol/L (22-28)
[2018-12-07 13:58] LABS: SQUAMOUS EPITHIAL 1 /hpf (0-5); URINE BILIRUBIN NEGATIVE (NEGATIVE); URINE BLOOD NEGATIVE (NEGATIVE); URINE CLARITY Hazy (Clear); URINE COLOR Yellow (YELLOW); URINE GLUCOSE (UA) NORMAL (Normal); URINE LEUKOCYTE ESTERASE NEG Leu/uL (Negative); URINE PROTEIN 1+ mg/dL (NEGATIVE); URINE UROBILINOGEN NORMAL mg/dL (0.2-1.0)
[2018-12-07 14:04] LABS: BARBITURATES, UR NEGATIVE (NEGATIVE); BENZODIAZEPINES, UR NEGATIVE (NEGATIVE); PHENCYCLIDINE, UR NEGATIVE (NEGATIVE)
[2018-12-07] MEDS ORDERED: Dextrose 50% SYRINGE Inj (50 ml) IV PRN (14:15)
[2018-12-07] MEDS ORDERED: Glucagon Recombinant 1 mg Inj IM PRN (14:15)
[2018-12-07] MEDS ORDERED: Albuterol-Ipratrop 3 mg / 0.5 (3 ml) UD ONE (14:36)
[2018-12-07 14:38] LABS: OPIATES, UR POSITIVE (NEGATIVE)
--- NOTE | 2018-12-07 15:26 | RAD ---
Date of service: 12/07/2018 HISTORY: chest pain COMPARISON: Comparison chest 09/30/2018 FINDINGS: LUNGS: Poor inspiration with low lung volumes, crowded bronchovascular markings and mild bibasilar atelectasis. PLEURA: No significant pleural effusion identified, no pneumothorax apparent. CARDIOVASCULAR: Minor aortic atherosclerotic calcification present. Cardiomegaly. OSSEOUS STRUCTURES: No significant abnormalities. VISUALIZED UPPER ABDOMEN: Normal. OTHER FINDINGS: None. IMPRESSION: No active disease.
[2018-12-07] MEDS: Albuterol-Ipratrop 3 mg / 0.5 (3 ml) UD INH SCH ×2 (15:30→19:20)
[2018-12-07 18:08] VITALS: RESP 20
[2018-12-07 18:08] LABS: CK-MB 5.26 ng/mL (0.0-3.38); TROPONIN I 0.026 ng/mL (0.00-0.120)
[2018-12-07] MEDS: (Novolin R) Insulin Human Regular 100 units/ml vial SC SCH ×2 (18:10→22:18)
[2018-12-07] MEDS ORDERED: Albuterol-Ipratrop 3 mg / 0.5 (3 ml) UD INH PRN (21:37)
[2018-12-07] MEDS: Enoxaparin 100 mg Syringe SC SCH (22:17)
--- NOTE | 2018-12-08 00:23 | CP.PCM.PN ---
Subjective - Date & Time of Evaluation Date of Evaluation: 12/08/18 Time of Evaluation: 00:20 - Subjective Subjective: Night float resident note Initial set of cardiac enzymes negative, second set showing elevated CK-MB. Patient already being treated with therapeutic Lovenox, ASA. Not a candidate for BB due to cocaine + UDS. Patient resting comfortably in bed, not complaining of any chest pain at this time. Spoke with my attending, Dr. Watkins who agrees no further steps need to be taken at this time as patient is already being treated. Objective - Vital Signs/Intake and Output Vital Signs (last 24 hours): Temp Pulse Resp BP Pulse Ox 97.9 F 68 20 137/80 96 12/07/18 18:07 12/07/18 19:20 12/07/18 18:07 12/07/18 18:07 12/07/18 18:07 - Medications Medications: Current Medications Albuterol/Ipratropium (Duoneb 3 Mg/0.5 Mg (3 Ml) Ud) 3 ml INH RQ4 PRN PRN Reason: Shortness of Breath Aspirin (Aspirin Chewable) 81 mg PO DAILY NORBERT Dextrose (Dextrose 50% Inj) 0 ml IV STAT PRN; Protocol PRN Reason: Hypoglycemia Protocol Dextrose (Glutose 15) 0 gm PO ONCE PRN; Protocol PRN Reason: Hypoglycemia Protocol Enoxaparin Sodium (Lovenox) 90 mg SC Q12 [facility] Last Admin: 12/07/18 22:17 Dose: 90 mg Glucagon (Glucagen Diagnostic Kit) 0 mg IM STAT PRN; Protocol PRN Reason: Hypoglycemia Protocol Dextrose (Dextrose 5% In Water 1000 Ml) 1,000 mls @ 0 mls/hr IV .Q0M PRN; Protocol PRN Reason: Hypoglycemia Protocol Insulin Human Regular (Novolin R) 0 unit SC ACHS NORBERT; Protocol Last Admin: 12/07/18 22:18 Dose: Not Given Losartan Potassium (Cozaar) 25 mg PO DAILY NORBERT Pantoprazole Sodium (Protonix Inj) 40 mg IVP DAILY [facility] Pneumococcal Polyvalent Vaccine (Pneumovax 23 Vaccine) 0.5 ml IM .ONCE ONE Stop: 12/10/18 10:01 Rosuvastatin Calcium (Crestor) 5 mg PO HS NORBERT Last Admin: 12/07/18 22:17 Dose: 5 mg - Labs Labs: 12/07/18 10:22 12/07/18 10:22 PT 11.4 SECONDS (9.7-12.2) 12/07/18 10:22 INR 1.0 12/07/18 10:22 APTT 32 SECONDS (21-34) 12/07/18 10:22
[2018-12-08] MEDS: (Novolin R) Insulin Human Regular 100 units/ml vial SC SCH ×4 (07:23→21:35)
--- NOTE | 2018-12-08 08:24 | CT ---
Date of service: 12/08/2018 PROCEDURE: CT HEAD WITHOUT CONTRAST. HISTORY: Headache. Evaluate for hemorrhage. COMPARISON: None available. TECHNIQUE: Axial computed tomography images were obtained through the head/brain without intravenous contrast. Radiation dose: Total exam DLP = 1126.92 mGy-cm. This CT exam was performed using one or more of the following dose reduction techniques: Automated exposure control, adjustment of the mA and/or kV according to patient size, and/or use of iterative reconstruction technique. FINDINGS: HEMORRHAGE: No intracranial hemorrhage. BRAIN: No mass effect or edema. Scattered focal lucencies in the subcortical and periventricular white matter suggestive for chronic microvascular ischemic change. Bilateral basal ganglia calcifications. VENTRICLES: Unremarkable. No hydrocephalus. CALVARIUM: Unremarkable. PARANASAL SINUSES: Unremarkable as visualized. No significant inflammatory changes. MASTOID AIR CELLS: Unremarkable as visualized. No inflammatory changes. OTHER FINDINGS: None. IMPRESSION: No acute intracranial abnormality. Mild chronic microvascular ischemic changes. If symptoms persists, consider correlation with MRI.
--- NOTE | 2018-12-08 08:32 | CP.PCM.PN ---
Subjective - Date & Time of Evaluation Date of Evaluation: 12/08/18 Time of Evaluation: 09:30 - Subjective Subjective: PGY1 Medicine progress note for Dr. Mago Fry Pt seen and examined at bedside. Pt is resting comfortably watching TV and eating an apple. When prompted, pt is complaining of pain "all over." Endorses chest pain, but states that it is better than when she came in. She is a poor historian and only answers some of my questions. Denies chills, n/v/d, bleeding. Objective - Vital Signs/Intake and Output Vital Signs (last 24 hours): Temp Pulse Resp BP Pulse Ox 98.3 F 68 20 139/63 99 12/07/18 23:42 12/07/18 23:42 12/07/18 23:42 12/07/18 23:42 12/07/18 23:42 - Medications Medications: Current Medications Albuterol/Ipratropium (Duoneb 3 Mg/0.5 Mg (3 Ml) Ud) 3 ml INH RQ4 PRN PRN Reason: Shortness of Breath Aspirin (Aspirin Chewable) 81 mg PO DAILY NORBERT Dextrose (Dextrose 50% Inj) 0 ml IV STAT PRN; Protocol PRN Reason: Hypoglycemia Protocol Dextrose (Glutose 15) 0 gm PO ONCE PRN; Protocol PRN Reason: Hypoglycemia Protocol Enoxaparin Sodium (Lovenox) 90 mg SC Q12 [facility] Last Admin: 12/07/18 22:17 Dose: 90 mg Glucagon (Glucagen Diagnostic Kit) 0 mg IM STAT PRN; Protocol PRN Reason: Hypoglycemia Protocol Dextrose (Dextrose 5% In Water 1000 Ml) 1,000 mls @ 0 mls/hr IV .Q0M PRN; Protocol PRN Reason: Hypoglycemia Protocol Insulin Human Regular (Novolin R) 0 unit SC ACHS NORBERT; Protocol Last Admin: 12/08/18 07:23 Dose: Not Given Losartan Potassium (Cozaar) 25 mg PO DAILY NORBERT Pantoprazole Sodium (Protonix Inj) 40 mg IVP DAILY NORBERT Pneumococcal Polyvalent Vaccine (Pneumovax 23 Vaccine) 0.5 ml IM .ONCE ONE Stop: 12/10/18 10:01 Rosuvastatin Calcium (Crestor) 5 mg PO HS NORBERT Last Admin: 12/07/18 22:17 Dose: 5 mg - Labs Labs: 12/07/18 10:22 12/07/18 10:22 PT 11.4 SECONDS (9.7-12.2) 12/07/18 10:22 INR 1.0 12/07/18 10:22 APTT 32 SECONDS (21-34) 12/07/18 10:22 - Constitutional Appears: Non-toxic, No Acute Distress, Unkempt, Older Than Stated Age - Eye Exam Eye Exam: EOMI, Normal appearance - ENT Exam ENT Exam: Mucous Membranes Moist - Respiratory Exam Respiratory Exam: Clear to Ausculation Bilateral. absent: Decreased Breath Sounds, Rales, Rhonchi, Wheezes, Stridor - Cardiovascular Exam Cardiovascular Exam: REGULAR RHYTHM, +S1, +S2. absent: Tachycardia, Clicks, Diastolic murmur, Irregular Rhythm - GI/Abdominal Exam GI & Abdominal Exam: Soft (obese abdomen), Normal Bowel Sounds. absent: Diste nded, Firm, Guarding, Rigid, Tenderness - Extremities Exam Extremities Exam: Normal Capillary Refill, Pedal Edema (2+ bilateral lower extremity edema). absent: Calf Tenderness - Neurological Exam Neurological Exam: Alert, Awake - Psychiatric Exam Psychiatric exam: Normal Affect, Normal Mood - Skin Skin Exam: Dry, Normal Color, Warm Assessment and Plan - Assessment and Plan (Free Text) Assessment: This is a 53 year old female with past medical history of HTN, NIDDM, HLD, HIV, ARA, OA presented to hospital for chest pain. Plan: Chest pain - Nitro 0.5 topical given in the ER - EKG on admission shows QTC prolongation at 524, TWIs in II, III, aVF, v3-v6 which is new compared to prior EKG. - Will check serial troponins and EKG * trop x2 negative * proBNP 841 * Pt refused bloodwork for today's daily labs, and yesterday's third CONNIE panel and EKG - UDS: opiates +; cocaine + - Alcohol <10 - Images: * Chest Xray: no active disease * ECHO (03/16/18): EF 60-65%; left ventricle systolic function is normal. Hypertensive heart disease (please see full report). * F/u echocardiogram - Medications: * Aspirin 81 mg po daily * Lovenox 40 mg sc qd - Cardiology Consult: Dr. Lagunas. Recommendations appreciated Therapeutic lovenox can be switched to prophylactic Lovenox Pt did not want to speak with him and did not want cardiac catheterization at this time. Polysubstance Abuse - pt presented intoxicated Head CT shows no acute intracranial pathology. Chronic microvascular ischemic changes. - UDS: opiates +; cocaine + Pt denies using cocaine, but states she took Tylenol with Codeine - Alcohol <10 - Detox, Dr. Marmolejo, consulted. Pt is refusing to be treated, as she does not use drugs and is not withdrawing. History of COPD - Chest Xray: no active disease - duonebs q4 History of HTN - Medications: * Losartan 25mg po daily History of HLD - Crestor 5mg HS - Lipid Panel wnl History of DM - Acckatt ACHS - ISS - hypoglycemic protocol - heart healthy diet History of HIV - PPt reports she sees a Dr. Valentine at [facility]. She reports she goes to multiple pharmacies and is unsure of any of their names. She is unsure of her meds or CD4 count. - Pt will f/u with outpatient clinic - Will not start HIV medications at this time History of ARA - CPAP at night time Prophylaxis - SCDs - Lovenox 40 mg SC QD - GI prophylaxis not indicated - Physical Therapy
[2018-12-08] MEDS: Enoxaparin 100 mg Syringe SC SCH (09:38)
--- NOTE | 2018-12-08 12:27 | CP.PCM.PCO ---
Physician Communication Note - Physician Communication Note Physician Communication Note: Pt refused to be seen: "I don't have a psych issue or addiction"
--- NOTE | 2018-12-08 19:20 | CARD ---
APPROVED REPORT Date of service: 12/07/2018 EKG Measurement Heart [id number] <Conclusion> Normal sinus rhythm with sinus arrhythmia Septal infarct, age undetermined T wave abnormality, consider inferior ischemia T wave abnormality, consider anterolateral ischemia Prolonged QT Abnormal ECG
--- NOTE | 2018-12-08 19:20 | CARD ---
APPROVED REPORT Date of service: 12/07/2018 EKG Measurement Heart [id number] <Conclusion> Normal sinus rhythm with sinus arrhythmia Septal infarct, age undetermined T wave abnormality, consider inferior ischemia T wave abnormality, consider anterolateral ischemia Prolonged QT Abnormal ECG
--- NOTE | 2018-12-08 22:31 | CARD ---
APPROVED REPORT Date of service: 12/07/2018 EKG Measurement Heart [id number] <Conclusion> Normal sinus rhythm with sinus arrhythmia Septal infarct, age undetermined T wave abnormality, consider inferior ischemia T wave abnormality, consider anterolateral ischemia Prolonged QT Abnormal ECG
--- NOTE | 2018-12-09 00:51 | CON ---
DATE: 12/08/2018 CARDIOLOGY CONSULTATION REASON FOR CONSULTATION: Abnormal EKG. HISTORY OF PRESENT ILLNESS: The patient refused to talk to me, but she allowed me to examine her. The patient stated that she had to talk to so many people today. The patient according to the records is a 53-year-old female who has a history of diabetes mellitus, presented because of chest pain and who was found to have abused both cocaine and opiate. The patient smelled alcohol; however, alcohol level was below 10. SOCIAL HISTORY: The patient is EtOH abuser, cocaine and heroin abuser. MEDICATIONS: Aspirin 81 mg once a day, Cozaar 25 mg once a day, Crestor 5 mg once a day, Lovenox 90 mg subcutaneously every 12 hours, Protonix 40 mg intravenously once a day. REVIEW OF SYSTEMS: I noticed the patient walking with walking cane, and she has a walker chair at the bedside, but refused to answer me what is the skeletal problem that prompted her to use a walker. PHYSICAL EXAMINATION: GENERAL: The patient is a middle-aged female who does not appear to be in acute distress; however, she me. VITAL SIGNS: Blood pressure 127/81, heart rate 69, temperature 97.9, respirations 20. NECK: No JVD. CHEST: Bilateral rhonchi. HEART: S1 and S2 regular. ABDOMEN: Soft. EXTREMITIES: No edema. LABORATORY DATA: Urine drug screen is positive for opiates and cocaine. Two sets of troponins are not in the elevated range. SMA-7 is within normal limits except for glucose of 110 and BUN of 19. Lipid profile is within normal limit. PT, PTT, and INR are within normal limits. Admitting EKG revealed a sinus rhythm at rate of 60, inferior and anterolateral ischemic T-wave changes with prolonged QT interval. A head CT scan without contrast, no acute intracranial finding, mild chronic microvascular ischemic changes. An echocardiography study performed in 03/2018 with normal ejection fraction, hypertensive heart, mild mitral insufficiency, and mild tricuspid insufficiency. ASSESSMENT: 1. Cocaine abuse and inferior and anterolateral ischemic T-wave changes. 2. Diabetes mellitus. 3. Ethyl alcohol abuse. 4. Hypertensive heart on the echocardiography with mild aortic insufficiency. RECOMMENDATIONS: Continue current aspirin 81 mg once a day, Cozaar 25 mg once a day, Crestor 5 mg once a day, therapeutic subcutaneous Lovenox at 90 mg every 12 hours. Start Imdur 60 mg once a day. Cardiac catheterization will be presented to the patient if she intends to comply with medications and drug abstinence. Trevon Lagunas MD
[2018-12-09] MEDS: (Novolin R) Insulin Human Regular 100 units/ml vial SC SCH ×2 (07:28→11:32)
[2018-12-09 08:14] VITALS: TEMP 98; O2SAT 98
--- NOTE | 2018-12-09 09:59 | CP.PCM.DIS ---
Provider - Provider Date of Admission: 12/07/18 12:32 Attending physician: Olman Fry MD Consults: 12/07/18 14:11 Cardiology Consult Routine Comment: Consulting Provider: Trevon Lagunas Consulting Physician: Trevon Lagunas Reason for Consult: inverted T waves; hx HTN 12/08/18 09:38 Physician Consult Routine Comment: Consulting Provider: Karely Marmolejo Consulting Physician: Karely Marmolejo Reason for Consult: hx polysubstance abuse, "pain all over" Hospital Course - Lab Results Lab Results: Most Recent Lab Values WBC 6.0 K/uL (4.8-10.8) 12/07/18 10:22 RBC 4.41 Mil/uL (3.80-5.20) 12/07/18 10:22 Hgb 12.5 g/dL (11.0-16.0) 12/07/18 10:22 Hct 39.4 % (34.0-47.0) 12/07/18 10:22 MCV 89.2 fL (81.0-99.0) 12/07/18 10:22 MCH 28.3 pg (27.0-31.0) 12/07/18 10:22 MCHC 31.8 g/dL (33.0-37.0) L 12/07/18 10:22 RDW 19.1 % (11.5-14.5) H 12/07/18 10:22 Plt Count 364 K/uL (130-400) 12/07/18 10:22 MPV 8.7 fL (7.2-11.7) 12/07/18 10:22 Neut % (Auto) 41.5 % (50.0-75.0) L 12/07/18 10:22 Lymph % (Auto) 40.2 % (20.0-40.0) H 12/07/18 10:22 Hyde % (Auto) 14.7 % (0.0-10.0) H 12/07/18 10:22 Eos % (Auto) 2.9 % (0.0-4.0) 12/07/18 10:22 Baso % (Auto) 0.7 % (0.0-2.0) 12/07/18 10:22 Neut # (Auto) 2.5 K/uL (1.8-7.0) 12/07/18 10:22 Lymph # (Auto) 2.4 K/uL (1.0-4.3) 12/07/18 10:22 Hyde # (Auto) 0.9 K/uL (0.0-0.8) H 12/07/18 10:22 Eos # (Auto) 0.2 K/uL (0.0-0.7) 12/07/18 10:22 Baso # (Auto) 0.0 K/uL (0.0-0.2) 12/07/18 10:22 PT 11.4 SECONDS (9.7-12.2) 12/07/18 10:22 INR 1.0 12/07/18 10:22 APTT 32 SECONDS (21-34) 12/07/18 10:22 Puncture Site Right radial 12/07/18 13:23 pCO2 49 mm/Hg (35-45) H 12/07/18 13:23 pO2 65 mm/Hg (80-100) L 12/07/18 13:23 HCO3 25.4 mmol/L (21-28) 12/07/18 13:23 ABG pH 7.35 (7.35-7.45) 12/07/18 13:23 ABG Total CO2 28.6 mmol/L (22-28) H 12/07/18 13:23 ABG O2 Saturation 95.8 % (95-98) 12/07/18 13:23 ABG Base Excess 0.8 mmol/L (-2.0-3.0) 12/07/18 13:23 Khari Test Pos 12/07/18 13:23 ABG Potassium 3.6 mmol/L (3.6-5.2) 12/07/18 13:23 A-a O2 Difference 23.0 mm/Hg 12/07/18 13:23 Respiratory Index 0.4 12/07/18 13:23 Sodium 140.0 mmol/l (132-148) 12/07/18 13:23 Chloride 112.0 mmol/L (98-107) H 12/07/18 13:23 Glucose 79 mg/dl (65-105) 12/07/18 13:23 Lactate 0.7 mmol/L (0.7-2.1) 12/07/18 13:23 FiO2 21.0 % 12/07/18 13:23 Sodium 137 mmol/L (132-148) 12/07/18 10:22 Potassium 5.2 mmol/L (3.6-5.2) 12/07/18 10:22 Chloride 104 mmol/L (98-107) 12/07/18 10:22 Carbon Dioxide 25 mmol/L (22-30) 12/07/18 10:22 Anion Gap 12 (10-20) 12/07/18 10:22 BUN 19 mg/dL (7-17) H 12/07/18 10:22 Creatinine 1.0 mg/dL (0.7-1.2) 12/07/18 10:22 Est GFR ( Amer) > 60 12/07/18 10:22 Est GFR (Non-Af Amer) 58 12/07/18 10:22 POC Glucose (mg/dL) 114 mg/dL (65-110) H 12/09/18 06:28 Random Glucose 110 mg/dL (65-105) H 12/07/18 10:22 Calcium 8.9 mg/dl (8.6-10.4) 12/07/18 10:22 Total Bilirubin 1.3 mg/dL (0.2-1.3) 12/07/18 10:22 AST 79 U/L (14-36) H D 12/07/18 10:22 ALT < 6 U/L (9-52) L D 12/07/18 10:22 Alkaline Phosphatase 105 U/L (38-126) 12/07/18 10:22 Total Creatine Kinase 342 U/L (30-135) H 12/07/18 17:32 CK-MB (Mass) 5.26 ng/mL (0.0-3.38) H 12/07/18 17:32 Troponin I 0.0260 ng/mL (0.00-0.120) 12/07/18 17:32 NT-Pro-B Natriuret Pep 841 pg/mL (0-900) 12/07/18 10:22 Total Protein 8.8 g/dL (6.3-8.3) H 12/07/18 10:22 Albumin 4.5 g/dL (3.5-5.0) 12/07/18 10:22 Globulin 4.2 gm/dL (2.2-3.9) H 12/07/18 10:22 Albumin/Globulin Ratio 1.1 (1.0-2.1) 12/07/18 10:22 Triglycerides 103 mg/dL (0-149) 12/07/18 10:22 Cholesterol 183 mg/dL (0-199) 12/07/18 10:22 LDL Cholesterol Direct 114 mg/dL (0-129) 12/07/18 10:22 HDL Cholesterol 51 mg/dL (30-70) 12/07/18 10:22 Arterial Blood Potassium 3.6 mmol/L (3.6-5.2) 12/07/18 13:23 Urine Color Yellow (YELLOW) 12/07/18 13:30 Urine Clarity Hazy (Clear) 12/07/18 13:30 Urine pH 5.0 (5.0-8.0) 12/07/18 13:30 Ur Specific [place] 1.018 (1.003-1.030) 12/07/18 13:30 Urine Protein 1+ mg/dL (NEGATIVE) H 12/07/18 13:30 Urine Glucose (UA) Normal mg/dL (Normal) 12/07/18 13:30 Urine Ketones Negative mg/dL (NEGATIVE) 12/07/18 13:30 Urine Blood Negative (NEGATIVE) 12/07/18 13:30 Urine Nitrate Negative (NEGATIVE) 12/07/18 13:30 Urine Bilirubin Negative (NEGATIVE) 12/07/18 13:30 Urine Urobilinogen Normal mg/dL (0.2-1.0) 12/07/18 13:30 Ur Leukocyte Esterase Neg Mark/uL (Negative) 12/07/18 13:30 Urine WBC (Auto) 4 /hpf (0-5) 12/07/18 13:30 Urine RBC (Auto) 1 /hpf (0-3) 12/07/18 13:30 Ur Squamous Epith Cells 1 /hpf (0-5) 12/07/18 13:30 Urine Opiates Screen Positive (NEGATIVE) H 12/07/18 13:30 Urine Methadone Screen Negative (NEGATIVE) 12/07/18 13:30 Ur Barbiturates Screen Negative (NEGATIVE) 12/07/18 13:30 Ur Phencyclidine Scrn Negative (NEGATIVE) 12/07/18 13:30 Ur Amphetamines Screen Negative (NEGATIVE) 12/07/18 13:30 U Benzodiazepines Scrn Negative (NEGATIVE) 12/07/18 13:30 U Oth Cocaine Metabols Positive (NEGATIVE) H 12/07/18 13:30 U Cannabinoids Screen Negative (NEGATIVE) 12/07/18 13:30 Alcohol, Quantitative < 10 mg/dl (0-10) 12/07/18 10:22 Discharge Exam - Head Exam Head Exam: ATRAUMATIC, NORMAL INSPECTION Discharge Plan - Follow Up Plan Condition: STABLE Disposition: HOME/ ROUTINE
[2018-12-09] MEDS ORDERED: Enoxaparin 40 mg Syringe SC SCH ×2 (10:00)
[2018-12-09] MEDS ORDERED: Pantoprazole 40 mg EC Tab PO SCH (10:30)
[2018-12-09 13:16] VITALS: BP 159/96; PULSE 99
--- NOTE | 2018-12-09 20:39 | PN ---
DATE: 12/09/2018 SUBJECTIVE: The patient is uncooperative, refused blood work for blood sugar. She does not appear to be in any distress at this time. PHYSICAL EXAMINATION: VITAL SIGNS: Blood pressure 159/96, heart rate 99, temperature 98, and respiration 20. HEENT: Normocephalic. CHEST: Clear. HEART: S1 and S2, regular. LABORATORY DATA: Today's blood sugars are 114 and 92 respectively. ASSESSMENT: 1. Chest pain with inferior and anterolateral ischemic EKG changes. 2. Status post cocaine abuse. 3. Diabetes mellitus. 4. Ethyl alcohol abuse. 5. Mild aortic insufficiency. RECOMMENDATIONS: Continue current Crestor 5 mg once a day, Protonix 40 mg p.o. once a day. The patient refused subcutaneous Lovenox as well as insulin. Case was discussed with the hospitalist, Dr. Olman Fry. The patient is not a candidate for an invasive cardiac workup, and most likely she will be discharged to the detention today. Trevon Lagunas MD
--- NOTE | 2018-12-09 22:21 | CARD ---
APPROVED REPORT Date of service: 12/09/2018 EXAM: Two-dimensional and M-mode echocardiogram with Doppler and color Doppler. Other Information Quality : GoodRhythm : INDICATION Abnormal EKG/Arrhythmia Chest Pain RISK FACTORS Hypertension Hyperlipidemia 2D DIMENSIONS IVSd0.8 (0.7-1.1cm)LVDd5.5 (3.9-5.9cm) PWd1.0 (0.7-1.1cm)LA [id number] (18-58mL) LVDs4.5 (2.5-4.0cm)FS (%) 18.4 % LVEF (%)40.0 (>50%)LVEF (Sarmiento's)47.85 % M-Mode DIMENSIONS Left Atrium (MM)4.38 (2.5-4.0cm)IVSd1.09 (0.7-1.1cm) Aortic Root2.61 (2.2-3.7cm)LVDd5.49 (4.0-5.6cm) Aortic Cusp Exc.2.01 (1.5-2.0cm)PWd1.19 (0.7-1.1cm) FS (%) 37 %LVDs3.44 (2.0-3.8cm) LVEF (%)45 (>50%) Mitral Valve MV E Mclelgww34.1cm/sMV A Exscucug18.8cm/sE/A ratio2.1 TDI Lateral E' Peak V7.51cm/sMedial E' Peak V5.19cm/sE/Lateral E'12.0 E/Medial E'17.4 Tricuspid Valve TR Peak Varkzypz942hn/sTR Peak Gr.2tbPsYWDV81ccEi LEFT VENTRICLE The left ventricle is normal size. There is normal left ventricular wall thickness. Left ventricle systolic function is mildly impaired. The Ejection Fraction is 40-45%. There is mild global hypokinesis of the left ventricle. The left ventricular diastolic function is normal. No left ventricle thrombus noted on this study. RIGHT VENTRICLE The right ventricle is normal size. The right ventricular systolic function is normal. ATRIA The left atrium is mildly dilated. The right atrium size is normal. AORTIC VALVE The aortic valve is mildly thickened. The aortic valve is probably trileaflet. No aortic regurgitation is present. There is no aortic valvular stenosis. There is no aortic valvular vegetation. MITRAL VALVE Mitral annular calcification is mild. There is no evidence of mitral valve prolapse. There is no mitral valve stenosis. Mitral regurgitation is trace to mild. TRICUSPID VALVE The tricuspid valve is normal in structure. There is trace to mild tricuspid regurgitation. Right ventricular systolic pressure is estimated at less than 30 mmHg. There is no pulmonary hypertension. There is no tricuspid valve prolapse or vegetation. There is no tricuspid valve stenosis. PULMONIC VALVE The pulmonic valve is not well visualized. There is no pulmonic valvular regurgitation. There is no pulmonic valvular stenosis. GREAT VESSELS The aortic root is normal in size. The IVC is normal in size and collapses >50% with inspiration. PERICARDIAL EFFUSION There is no pericardial effusion. There is no pleural effusion. <Conclusion> The left ventricle is normal size. Left ventricle systolic function is mildly impaired. The Ejection Fraction is 40-45%. There is mild global hypokinesis of the left ventricle. The left ventricular diastolic function is normal. The right ventricle is normal size. The right ventricular systolic function is normal. The left atrium is mildly dilated. The right atrium size is normal. Mitral regurgitation is trace to mild. There is trace to mild tricuspid regurgitation.
[2018-12-10] MEDS ORDERED: Pneumococcal 23-Valent Vaccine IM ONE (10:00)
== END 2018-12-09 16:29 | disposition home or self-care (01) ==
LOC: C.ER 09:31 → C.9E 12:32 → C.5S 16:53
PROVIDERS: ADMIT Family Medicine; ATTEND Family Medicine
DX: R07.9 Chest pain, unspecified (principal); I11.9 Hypertensive heart disease without heart failure; E11.9 Type 2 diabetes mellitus without complications; E78.00 Pure hypercholesterolemia, unspecified; E78.5 Hyperlipidemia, unspecified; G47.33 Obstructive sleep apnea (adult) (pediatric); Z79.84 Long term (current) use of oral hypoglycemic drugs; F10.10 Alcohol abuse, uncomplicated; F11.10 Opioid abuse, uncomplicated; F14.10 Cocaine abuse, uncomplicated; F17.210 Nicotine dependence, cigarettes, uncomplicated; Z21 Asymptomatic human immunodeficiency virus [HIV] infection status
CPT/HCPCS: 36415; 70450; 71045; 80053; 80061; 80320; 80324; 80345; 80346; 80349; 80353; 80358; 80361; 81001; 82803; 82948; 83880; 83992; 84484; 85025; 85610; 85730; 93005; 93306; 94640; 97162; 97530; 99285; C9113; G0378; G8981; G8982; J1650

== ENCOUNTER 2019-02-23 00:22 | Emergency (ER) | payer MEDICAID ==
[2019-02-23 00:22] VITALS: BMI 44.2
--- NOTE | 2019-02-23 01:28 | C.PDOC ---
History Of Present Illness Patient presents to the ED c/o bilateral leg pain. Patient reports she ran out of her Tramadl and Gabapentin. Patient denies fever, chills, nausea, vomit, diarrhea, CP, SOB, injury, fall, trauma, weakness, numbness. Time Seen by Provider: 02/23/19 01:27 Chief Complaint (Nursing): Lower Extremity Problem/Injury History Per: Patient History/Exam Limitations: no limitations Onset/Duration Of Symptoms: Persistent Recent travel outside of the [place]: No Additional History Per: Patient Past Medical History Reviewed: Historical Data, Nursing Documentation, Vital Signs Vital Signs: Last Vital Signs Temp 97.8 F 02/23/19 00:26 Pulse 92 H 02/23/19 00:26 Resp 22 02/23/19 00:26 BP 115/69 02/23/19 00:26 Pulse Ox 97 02/23/19 00:26 Primary Care Provider: Non [facility] Provider, - Medical History PMH: Arthritis, Diabetes, HIV, HTN, Hypercholesterolemia Denies: Chronic Kidney Disease Surgical History: Hernia Repair Family History: States: Unknown Family Hx - Social History Hx Tobacco Use: Yes Hx Alcohol Use: No Hx Substance Use: No - Immunization History Hx Tetanus Toxoid Vaccination: No Hx Influenza Vaccination: No Hx Pneumococcal Vaccination: No Review Of Systems Constitutional: Negative for: Fever, Chills Cardiovascular: Negative for: Chest Pain, Palpitations Respiratory: Negative for: Shortness of Breath Gastrointestinal: Negative for: Nausea, Vomiting, Abdominal Pain Musculoskeletal: Positive for: Leg Pain Skin: Negative for: Rash Neurological: Negative for: Weakness, Numbness Physical Exam - Physical Exam Appears: Non-toxic, No Acute Distress Skin: Warm, Dry Head: Normacephalic Eye(s): bilateral: Normal Inspection Neck: Supple Chest: Symmetrical Cardiovascular: Rhythm Regular Respiratory: No Rales, No Rhonchi, No Wheezing Gastrointestinal/Abdominal: Soft, No Tenderness Extremity: Pedal Edema (bilateral trace), Capillary Refill (< 2 seconds) Extremity: Bilateral: Atraumatic, Normal Color And Temperature, Normal ROM Pulses: Left Dorsalis Pedis: Normal, Right Dorsalis Pedis: Normal Neurological/Psych: Oriented x3, Normal Speech, Normal Cognition Gait: With Assistance (walker) ED Course And Treatment O2 Sat by Pulse Oximetry: 97 (ON RA) Pulse Ox Interpretation: Normal Progress Note: Plan: - Gabapentin 300 mg PO. - Tramadol 50 mg PO. Patient requests if she would be able to stay the night. Reports leg pain is a chronic condition not new. Reevaluation Time: 04:52 Reassessment Condition: Improved Disposition Counseled Patient/Family Regarding: Studies Performed, Diagnosis, Need For Followup - Disposition Referrals: [facility] [Outside] Disposition: HOME/ ROUTINE Disposition Time: 01:28 Condition: FAIR Prescriptions: Gabapentin 300 mg PO TID #30 capsule traMADol [Ultram] 50 mg PO QID PRN #15 tab PRN Reason: Pain, Severe (8-10) Instructions: Diabetic Neuropathy (DC) Forms: [employer] (Belgian) - Clinical Impression Clinical Impression: Diabetic neuropathy - Scribe Statement The provider has reviewed the documentation as recorded by the Scribe Gomez Mckeon All medical record entries made by the Scribe were at my direction and personally dictated by me. I have reviewed the chart and agree that the record accurately reflects my personal performance of the history, physical exam, medical decision making, and the department course for this patient. I have also personally directed, reviewed, and agree with the discharge instructions and disposition.
[2019-02-23 04:57] VITALS: BP 126/71; PULSE 82; RESP 20; TEMP 98.2
[2019-02-23 05:18] VITALS: O2SAT 97
== END 2019-02-23 05:21 | disposition home or self-care (01) ==
LOC: C.ER 00:22
DX: E11.40 Type 2 diabetes mellitus with diabetic neuropathy, unspecified (principal)